=== PATIENT | male | born 1935 | race Caucasian/White ===

== ENCOUNTER 2016-12-11 06:04 | Day surgery (SDC) | payer OTHER ==
[~2016-12-11 06:04] MED LIST: ACETAMINOPHEN650 MG PTUBE; CARDURA2 MG PTUBE; CEPHALEXIN250 MG/5 M PTUBE; CEPHALEXIN500 MG PO; DOCUSATE SODIU250 MG PO; FLOMAX0.4 MG PO; IPRATROPIUM BROMIDE/ IN; LEVOTHYROXINE88 MCG PO; MILK OF MA400 MG/5 M PO; MULTI VITAMIN MENS; NIZORAL2 % TOP; NORCO1 TA1 PO; NORCO1 TA2 PO; PROMETHAZINE PO; SENOKOT8.6 MG PTUBE; SULFAMETHOXAZOLE PO; TGT ASPIRIN81 MG PO; TRAMADOL HCL50 MG PO; TRIMETHOPRIM PO; VITAMIN B COMPLE1 PO; VITAMIN D-31000 UNIT PO
[2016-12-11] MEDS ORDERED: HYCET1 ML PO (08:58)
--- NOTE | 2016-12-11 08:59 | Provider's Discharge Care Plan ---
Problem, Goal, Plan Problem List 1. S/P LAP LIH REPAIR (MADELEINE)
--- NOTE | 2016-12-11 08:59 | Provider's Discharge Care Plan ---
Problem, Goal, Plan Problem List 1. S/P LAP LIH REPAIR (MADELEINE)
--- NOTE | 2016-12-11 09:00 | Provider's Discharge Care Plan ---
Problem, Goal, Plan Problem List 1. S/P LAP LIH REPAIR (MADELEINE) Goals: Therapeutic intervention Instructions: Follow up as directed, Take meds as directed
--- NOTE | 2016-12-11 09:00 | Provider's Discharge Care Plan ---
Problem, Goal, Plan Problem List 1. S/P LAP LIH REPAIR (MADELEINE) Goals: Therapeutic intervention Instructions: Follow up as directed, Take meds as directed
--- NOTE | 2016-12-11 09:35 | OPERATIVE REPORT ---
DATE OF SURGERY: 12/11/2016 SURGEON: Leana Sofia III, MD TRAY CASTING MACHINE OPERATOR: None. PREOPERATIVE DIAGNOSIS: 1. Left inguinal hernia POSTOPERATIVE DIAGNOSIS: 1. Left direct inguinal hernia PROCEDURE PERFORMED: 1. Laparoscopic repair of left direct inguinal hernia with 11 x 8 cm Covidien ProGrip mesh (MADELEINE repair). ANESTHESIA: General endotracheal. INDICATIONS: An 81-year-old male with symptomatic left inguinal hernia and scheduled for repair. SURGICAL FINDINGS: Left direct inguinal hernia. SURGICAL TECHNIQUE: The patient was brought to the operating room and placed in the dorsal supine position, where he underwent general endotracheal anesthesia by the anesthesiology department. After proper anesthesia had taken effect, the patient 's abdomen and groin were prepped using Betadine and draped in a sterile fashion. An infraumbilical incision made, carried down through skin and subcutaneous tissue. A Veress needle was inserted through this site into the abdominal cavity and after ascertaining its appropriate position with suction irrigation, pneumoperitoneum obtained using CO2 insufflation to approximately 14-15 mmHg pressure. Once this pressure was reached, the Veress needle was removed and replaced with a 10 mm trocar. The trocar removed leaving the sleeve behind, through which a laparoscopic video camera was introduced into the abdominal cavity. Under direct visualization, a separate 5 mm trocar was placed in the right lower quadrant, a separate 10 mm trocar was placed in the left lower quadrant. Each entered the abdominal cavity under direct visualization. The trocars were removed, leaving the sleeves behind, through which laparoscopic instrumentation was introduced in the abdominal cavity. The peritoneum overlying the hernia was incised using electrocautery quyen. This incision was carried out medially to the lateral umbilical ligament and out laterally and inferior to the anterior superior iliac crest spine. The inferior peritoneal flap was created using a combination of blunt dissection and electrocautery. In the process, we were able to identify the pubic tubercle, Gerardo's ligament and reduce the direct hernia. We were able to skeletonize the cord in the process. Once this was achieved, we were able to place a piece the Covidien mesh , which had been cut in an ovoid fashion measuring approximately 11 x 8 cm in size in the preperitoneal space and placing it into such a position and orienting it to prevent shifting. The inferior peritoneal flap was raised to the upper portion of the peritoneal flap and secured using 3-0 V-Loc Covidien suture, thus reperitonealizing the mesh. Once the mesh was reperitonealized, approximately 30 mL of 0.5% Marcaine with epinephrine were placed in the preperitoneal space for postoperative analgesia. The pneumoperitoneum released and all trocars were removed from the abdominal cavity. All trocar sites approximated using 4-0 subdermal Polysorb and Steri-Strips. A sterile pressure occlusive dressing was placed over each site. The patient tolerated the procedure well, was extubated and transferred to the recovery room in stable condition. There were no intraoperative or anesthetic complications.
== END 2016-12-11 13:50 | disposition home or self-care (01) ==
LOC: OR SRH 06:04 → SCU SRH 06:36
PROVIDERS: Specialist
PROC: 0YU64JZ Supplement Left Inguinal Region with Synthetic Substitute, Percutaneous Endoscopic Approach (ICD-10-PCS; principal; 2016-12-11 07:30)
DX: K40.91 Unilateral inguinal hernia, without obstruction or gangrene, recurrent (principal)
CPT/HCPCS: 29240; 50002; 60001; 70002; 80102; 80212; 80248; 82669; 83432; 83587; 83710; 83711; 83919; 83982; 84038; 84322; 90074; 90100; 95059

== ENCOUNTER 2016-12-16 09:50 | Inpatient (IN) | payer OTHER ==
[~2016-12-16] VITALS: Ht 172.7 cm; Wt 71.6 kg
[~2016-12-16 09:50] MED LIST changes: +HYCET1 ML PO
--- NOTE | 2016-12-16 10:51 | DIAGNOSTIC IMAGING REPORT ---
PROCEDURE: XR CHEST 1 VIEW INDICATION: FEVER, initial encounter TECHNIQUE: Portable AP view 10:28 a.m. COMPARISON: Chest x-ray 09/18/2016 FINDINGS: Progression of right basilar consolidation with stable moderate right pleural effusion. Mild cardiomegaly with new pulmonary vascular congestion and left basilar alveolar opacities. Bony thorax is unchanged. IMPRESSION: 1. CHF with left basilar pulmonary edema versus pneumonia. 2. Progression of right basilar consolidation suggestive of pneumonia with stable right pleural effusion
--- NOTE | 2016-12-16 12:05 | DIAGNOSTIC IMAGING REPORT ---
PROCEDURE: CT HEAD WITHOUT CONTRAST INDICATION: TRAUMA/INJURY TECHNIQUE: Axial CT images were acquired through the head. Coronal and sagittal reformations were created. COMPARISON: Brain MRI 09/20/2012 FINDINGS: Mild cerebral cortical atrophy. Minimal hypodensity in the periventricular and subcortical white matter. Prominent ventricles No intracranial hemorrhage or extraaxial fluid collections. Ventricles are normal in size, shape and position. There is no mass, mass effect or midline shift. The browne-white matter differentiation is normal. There is no edema. The calvarium is intact. The paranasal sinuses and mastoid air cells are normally aerated. The extracranial soft tissues and orbits are normal. IMPRESSION: 1. No CT evidence of acute intracranial process. 2. Age related involutional and white matter changes. 3. Findings discussed with emergency department at noon All CT scans at this facility use dose modulation, iterative reconstruction, and/or weight-based dosing when appropriate to reduce radiation dose to as low as reasonably achievable.
--- NOTE | 2016-12-16 12:11 | DIAGNOSTIC IMAGING REPORT ---
PROCEDURE: XR SHOULDER 2 OR MORE VW-RIGHT INDICATION: TRAUMA/INJURY TECHNIQUE: Three views. COMPARISON: None. FINDINGS: Calcific tendonitis. No fracture or dislocation. IMPRESSION: 1. Calcific tendonitis
--- NOTE | 2016-12-16 12:26 | ED ORDER SUMMARY ---
..... Patient: ALEIDA LUCAS OrderSheet [facility] VisitID: [id number] [address] [place] [address] 81y, M Registration Date/Time: 12/16/2016 ORDER SHEET Weight: 67.1 kg (stated) Allergies: No Known Drug Allergy GENERAL ORDERS: Chest 1V Urgent (10:12/16/2016 Elizabeth RAHMAN) (Ack 10:26 LMuller) (10:26 LMuller) Director Of Restaurant Operations (Continuous) (10:12/16/2016 Elizabeth RAHMAN) (10:19 MWinterer R.N.) Blood Culture (No) (N/A) Urgent (10:12/16/2016 Elizabeth RAHMAN) (Ack 10:26 LMuller) (10:55 MWinterer R.N.) CBC w Diff Urgent (10:12/16/2016 Elizabeth RAHMAN) (Ack 10:26 LMuller) (10:55 MWinterer R.N.) CMP Urgent (10:12/16/2016 Elizabeth RAHMAN) (Ack 10:26 LMuller) (10:55 MWinterer R.N.) UA-Culture if indicated Urgent (10:12/16/2016 Elizabeth RAHMAN) (Ack 10:26 LMuller) (Cancelled: Other12:38 MWinterer R.N.) Lactate, Serum Urgent (10:12/16/2016 Eilzabeth RAHMAN) (Ack 10:26 LMuller) (10:55 MWinterer R.N.) Oxygen (2 L/min) (NC) (10:12/16/2016 Elizabeth RAHMAN) (10:19 MWinterer R.N.) Pulse oximeter (10:12/16/2016 Elizabeth RAHMAN) (10:19 MWinterer R.N.) EKG - ER Stat (10:12/16/2016 Elizabeth RAHMAN) (Ack 10:20 MWinterer R.N.) (10:41 LMuller) CT Head wo Cont Urgent (11:12/16/2016 Elizabeth RAMHAN) (Ack 11:34 LMuller) (12:17 MWinterer R.N.) Shoulder 2V or more Right Urgent (11:27 12/16/2016 Elizabeth RAHMAN) (Ack 11:34 LMuller) (12:17 MWinterer R.N.) MEDICATION ORDERS: Acetaminophen PO 1,000 mg (NOW) (10:17 12/16/2016 Elizabeth RAHMAN) (Ack 10:36 MWinterer R.N.) (Cancelled: NPO11:05 KWilliams R.N.) - (Tylenol IV 1000mg over 15 minutes) (11:06 12/16/2016 KWilliams R.N. verbal order read back to Elizabeth RAHMAN) (Ack 11:16 MWinterer R.N.) (Cancelled: Other12:06 MWinterer R.N.) Tylenol PO 975 mg (NOW) (12:18 12/16/2016 MWinterer R.N. verbal order read back to Elizabeth RAHMAN) (12:19 MWinterer R.N.) IV FLUIDS: IV NS : initial bolus 500 mL (1000 mL/hr), then 150 mL/hr (NOW) (10:16 12/16/2016 Elizabeth RAHMAN) (Ack 10:36 MWinterer R.N.) (10:57 MWinterer R.N.) Levaquin IV 750 mg/150 mL (NOW) (11:23 12/16/2016 Elizabeth RAHMAN) (Ack 11:38 MWinterer R.N.) (Cancelled: Change in patient iobtoxkiy11:32 Elizabeth RAHMAN) Levofloxacin IV 500 mg/100mL (NOW) (14:33 12/16/2016 Elizabeth RAHMAN) (Ack 14:36 MWinterer R.N.) (18:16 MWinterer R.N.) IV NS : initial bolus 250 mL (1000 mL/hr), then 100 mL/hr (NOW) (14:33 12/16/2016 Elizabeth RAHMAN) (Ack 14:36 MWinterer R.N.) (18:21 MWinterer R.N.) ORDER SHEET NOTES: [Electronically signed by Marie Powell R.N. (18:24 12/16/2016)] [Electronically signed by Jelena Nash MD (09:35 12/17/2016)] [Electronically locked/signed by Marie Powell R.N. (18:24 12/16/2016)Garima
--- NOTE | 2016-12-16 12:26 | ED NURSING NOTES ---
Clinical Report - Nurses [place] [address] [place] [address] 12/16/2016 9:51 Patient: ALEIDA LUCAS TRIAGE Acuity: LEVEL 3. Chief Complaint: WEAKNESS (pain from surgery). Alert. No acute distress. SEPSIS SCREEN: Sepsis Screen. Negative (no infection suspected/documented). CARLYLE COMA SCORE: [place] Coma Scale: 15- eyes open spontaneously (4); best verbal response- oriented x 4 (5); best motor response- obeys commands (6). --10:04 Marie Powell R.N. 09:51 12/16/16. BP: 114/73. HR: 106. RR: 20. O2 saturation: 95% on nasal cannula at 4 liters/minute. Temp: 98.7 F (oral). Pain level now: 01/23. --10:04 Marie Powell R.N. Weight: 67.1 kg stated. Height/Length: 70 inches Per Patient. BMI: 21.2. --10:02 Marie Powell R.N. Medications Levothyroxine Sodium Oral (Tablet 75 mcg) 1 tablet, daily. --14:56 Marie Powell R.N. ASA Oral 81mg, daily. --14:56 Marie Powell R.N. Doxazosin Mesylate Oral (Tablet 1 mg). --14:57 Marie Powell R.N. Vitamin D3 Oral (Tablet 1000 unit). --14:58 Marie Powell R.N. Vitamin B Complex Oral. --14:59 Marie Powell R.N. Milk of Magnesia Oral, as needed. --15:05 Marie Powell R.N. TraMADol HCl Oral 50 mg, as needed. --15:06 Marie Powell R.N. Promethazine HCl Oral. --15:07 Marie Powell R.N. Hydrocodone-Acetaminophen Oral. --15:09 Marie Powell R.N. Allergies No Known Drug Allergy. --10:01 Marie Powell R.N. Medication/allergy information source: the patient and patient's senior living record. --10:04 Marie Powell R.N. History Arrived by EMS. Historian: daughter and patient. Accompanied by daughter. Primary physician (Racheal). This started today. PAST MEDICAL HX: Has not received seasonal influenza immunization. SOCIAL HX: Former smoker. No alcohol use or drug use. SKIN INTEGRITY ASSESSMENT: Skin integrity risk assessment was performed. Risk factors identified include restricted mobility. NUTRITIONAL RISK ASSESSMENT: The nutritional risk assessment revealed no deficiencies. FALL RISK ASSESSMENT: Fall risk assessment completed. Risk factors identified include patient age greater than 65 years and impairment of mobility, sight and hearing. Fall interventions initiated. Patient placed on stretcher. Side rails up x2. Brakes on Bed in low position. Call light in reach of patient. 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 LEARNING NEEDS ASSESSMENT: A learning needs assessment was performed. Factors affecting the patient's ability to learn include physical limitations. --10:04 Marie Powell R.N. PROBLEMS: Cellulitis. Esophageal cancer. Cataracts. Neck Pain. Vomiting. GERD. Dementia. Tendonitis. Tetanus Status. Hypotension. Hypovolemia. Pneumonia. Colon polyps . Hiatal Hernia. Insomnia . Epistaxis. Hypertension. Immunizations. Tongue carcinoma. Thyroid Disease. --10:00 Marie Powell R.N. ADDITIONAL SURGERIES: Cochlear implant. Hammer toe. Percutaneous endoscopic gastrostomy. Skin ca. --10:01 Marie Powell R.N. Assessment GENERAL / NEURO / PSYCH: Alert. Oriented X 4. Appears in no acute distress. Patient appears calm and cooperative. RESPIRATORY: Respirations not labored. CVS: Capillary refill less than 2 seconds. SKIN: Mucous membranes are pink. Skin is warm and dry. --10:04 Marie Powell R.N. Interventions ID band on patient. To treatment room. --10:04 Marie Powell R.N. PHYSICAL ASSESSMENT 10:05 12/16/16. To room via stretcher. GENERAL / NEURO / PSYCH: Alert. Appears in no acute distress. HEENT: No facial asymmetry noted. Mucous membranes are pink. RESPIRATORY: Respirations not labored. CVS: Capillary refill less than 2 seconds. GI / : Abdomen soft. SKIN: Skin is warm and dry. --10:05 Marie Powell R.N. NURSING PROGRESS NOTES 10:12/16/16. Patient gowned. Two patient identifiers checked. Call light placed in reach. Side rails up x 2. Bed placed in lowest position. Brakes of bed on. Patient ready for evaluation- chart flagged and ED physician notified. --10:05 Marie Powell R.N. EKG time: (1035). EKG was performed by a tech and shown to the ED physician. --10:42 Mey Donis 10:56 12/16/2016 Site #1 started via IV in the right forearm with an 20g angiocath, with aseptic technique and good blood return; one attempt. Blood drawn: rainbow set. Labeled in the presence of the patient and sent to the lab. --10:56 Marie Powell R.N. 10:56 12/16/2016 Started bag #1 1000 mL IV Fluids IV NS (Saline); at 999 mL/hr over 30 minute(s) via site #1 via IV pump. Allergies verified and confirmed 5 rights. IV patency established. IV site checked: no pain, redness, or swelling. IV flushed thoroughly pre- and post-medication administration. --10:57 Marie Powell R.N. 11:24 12/16/16. BP: 107/68. HR: 101. RR: 20. O2 saturation: 95% on nasal cannula at 4 liters/minute. Temp: 98.8 F (oral). --11:25 Marie Powell R.N. 11:26 12/16/2016 IV Fluids IV NS via IV site #1 Rate Changed: bag #1 decreased to 150 mL/hr via IV pump. IV patency established. IV site checked: no pain, redness, or swelling. IV flushed thoroughly. Confirmed 5 Rights. --11:26 Winterer, Marie, R.N. <<STRICKEN ENTRY-- 12:17 12/16/2016 Started 750 mg of Levaquin (Levofloxacin) IVPB in bag #1 150 mL; at 100 mL/hr over 90 minute(s) via site #1 via IV pump. Allergies verified and confirmed 5 rights. IV patency established. IV site checked: no pain, redness, or swelling. IV flushed thoroughly pre- and post-medication administration. --12:17 Marie Powell R.N. --END STRIKE>> Correction. --18:16 Marie Powell R.N. 12:19 12/16/2016 Tylenol (Acetaminophen) PO 975 mg given. Allergies verified and confirmed 5 rights. (tylenol liquid given per feeding tube.). --12:19 Marie Powell R.N. 12:53 12/16/16. BP: 80/58. HR: 100. RR: 22. O2 saturation: 96% on nasal cannula at 3 liters/minute. --12:54 Marie Powell R.N. <<STRICKEN ENTRY-- 12:55 12/16/2016 Levaquin IVPB via IV site #1 Rate Changed: bag #1 decreased to 50 mL/hr via IV pump. IV patency established. IV site checked: no pain, redness, or swelling. IV flushed thoroughly. Confirmed 5 Rights (rate slowed due to BP drop). --12:55 Marie Powell R.N. --END STRIKE>> Correction. --18:16 Marie Powell R.N. 12:58 12/16/16. BP: 95/65. HR: 97. RR: 20. O2 saturation: 97% on nasal cannula at 3 liters/minute. --12:58 Marie Powell R.N. <<STRICKEN ENTRY-- 13:12/16/2016 Started bag #2 1000 mL IV Fluids IV NS (Saline); at 999 mL/hr over 30 minute(s) via site #1 via IV pump. Allergies verified and confirmed 5 rights. IV patency established. IV site checked: no pain, redness, or swelling. IV flushed thoroughly pre- and post-medication administration. --13:26 Marie Powell R.N. --END STRIKE>> Correction. --16:18 Marie Powell R.N. 13:12/16/2016 IV Fluids IV NS Discontinued: bag #1 infused. Total amount infused: 1000 mL. IV patency established. IV site checked: no pain, redness, or swelling. IV flushed thoroughly. --13:26 Marie Powell R.N. <<STRICKEN ENTRY-- 13:26 12/16/2016 IV Fluids IV NS via IV site #1 Rate Changed: bag #2 decreased to 150 mL/hr via IV pump. IV patency established. IV site checked: no pain, redness, or swelling. IV flushed thoroughly. Confirmed 5 Rights. --13:26 Marie Powell R.N. --END STRIKE>> Correction. --16:18 Marie Powell R.N. 13:27 12/16/2016 Site #2 started via IV in the left antecubital space with an 18g angiocath, with aseptic technique and good blood return; one attempt. Saline lock flushed with 10 mL saline. --13:27 Marie Powell R.N. 13:29 12/16/16. ( Dr Sanchez at bedside.). --13:29 Marie Powell R.N. 13:45 12/16/16. BP: 86/55. HR: 94. RR: 22. O2 saturation: 93% on nasal cannula at 2 liters/minute. Temp: 98.1 F (oral). --13:46 Marie Powell R.N. <<STRICKEN ENTRY-- 13:47 12/16/2016 Levaquin IVPB Discontinued: bag #1 discontinued. Total amount infused: 112 mL. --13:47 Marie Powell R.N. --END STRIKE>> Correction. --18:16 Marie Powell R.N. 14:12/16/16. BP: 88/59. HR: 94. RR: 20. O2 saturation: 91%. --14:04 Marie Powell R.N. 14:15 12/16/16. BP: 92/58. HR: 90. RR: 20. O2 saturation: 95% on nasal cannula at 3 liters/minute. --14:15 Marie Powell R.N. 14:31 12/16/16. BP: 92/60. HR: 90. RR: 24. O2 saturation: 95% on nasal cannula at 3 liters/minute. --14:31 Marie Powell R.N. 12:17 12/16/2016 Started 750 mg of Levofloxacin IVPB in bag #1 150 mL; at 100 mL/hr over 90 minute(s) via site #1 via IV pump. Allergies verified and confirmed 5 rights. IV patency established. IV site checked: no pain, redness, or swelling. IV flushed thoroughly pre- and post-medication administration. --18:16 Marie Powell R.N. 12:55 12/16/2016 Levofloxacin IVPB via IV site #1 Rate Changed: bag #1 decreased to 50 mL/hr via IV pump. IV patency established. IV site checked: no pain, redness, or swelling. IV flushed thoroughly. Confirmed 5 Rights (rate changed due to pt's BP drop). --18:17 Marie Powell R.N. 13:00 12/16/2016 Started bag #2 1000 mL IV Fluids IV NS (Saline); at 999 mL/hr over 15 minute(s) via site #1 via IV pump. Allergies verified and confirmed 5 rights. IV patency established. IV site checked: no pain, redness, or swelling. IV flushed thoroughly pre- and post-medication administration. --18:21 Marie Powell R.N. 13:47 12/16/2016 Levofloxacin IVPB Discontinued: bag #1 STOPPED. Total amount infused: 112 mL. IV patency established. IV site checked: no pain, redness, or swelling. IV flushed thoroughly. (bag stopped due to BP. Pt given 500 mg instead of 750 mg..). --18:19 Marie Powell R.N. 15:15 12/16/2016 Site #[address] upon admission; patent, no pain and no signs of infection or infiltration. Flushed with 10 mL saline; flushes easily. --18:22 Marie Powell R.N. 15:15 12/16/2016 Site #[address] upon admission; patent, no pain and no signs of infection or infiltration. Flushed with 10 mL saline; flushes easily. --18:22 Marie Powell R.N. 15:15 12/16/2016 IV Fluids IV NS Discontinued: bag #2 discontinued upon admission. Total amount infused: 500 mL. IV patency established. IV site checked: no pain, redness, or swelling. IV flushed thoroughly. --18:22 Marie Powell R.N. <<[facility] ENTRY-- 16:22 12/16/2016 Started bag #2 1000 mL IV Fluids IV NS (Saline); at 999 mL/hr over 15 minute(s) via site #1 via IV pump. Allergies verified and confirmed 5 rights. IV patency established. IV site checked: no pain, redness, or swelling. IV flushed thoroughly pre- and post-medication administration. --16:22 Marie Powell R.N. --END STRIKE>> Correction. --18:20 Marie Powell R.N. DIS[facility]ITION / DISCHARGE [facility] 14:05 12/16/16. BP: 155/85. HR: 99. RR: 15. O2 saturation: 99% on room air. Temp: 98.6 F. Pain level now: 0/10. --14:06 aMrie Powell R.N. --END STRIKE>> Charted on wrong patient. --14:53 Marie Powell R.N. Departure time: 15:Dec 16 2016. Condition at departure: improved and stable. Admitted to Acute Care. Transported via stretcher by [employer] Report was given to a nurse via a phone call. Report included patient's care, treatment, medications, reviewed medication reconcilliation, and condition (including any recent changes or anticipated changes). All questions were answered. Report was acknowledged and care was transferred. (NADIA Parker). Patient's personal items include: upper denture and lower denture, pt's daughter took pt's clothes home. He did not have glasses or a hearing aid, wallet or cell phone. --15:13 Marie Powell R.N. 14:53 12/16/16. BP: 94/61. HR: 93. RR: 20. O2 saturation: 95% on nasal cannula at 3 liters/minute. Temp: 98.1 F (oral). Pain level now: 0/10. --15:13 Marie Powell R.N. Locked/Released at 12/16/2016 18:24 by Marie Powell R.N.
--- NOTE | 2016-12-16 12:26 | ED ORDER SUMMARY ---
..... Patient: ALEIDA LUCAS OrderSheet [facility] VisitID: [id number] [address] [place] [address] 81y, M Registration Date/Time: 12/16/2016 ORDER SHEET Weight: 67.1 kg (stated) Allergies: No Known Drug Allergy GENERAL ORDERS: Chest 1V Urgent (10:12/16/2016 Elizabeth RAHMAN) (Ack 10:26 LMuller) (10:26 LMuller) C T Tech (Continuous) (10:12/16/2016 Elizabeth RAHMAN) (10:19 MWinterer R.N.) Blood Culture (No) (N/A) Urgent (10:12/16/2016 Elizabeth RAHMAN) (Ack 10:26 LMuller) (10:55 MWinterer R.N.) CBC w Diff Urgent (10:12/16/2016 Elizabeth RAHMAN) (Ack 10:26 LMuller) (10:55 MWinterer R.N.) CMP Urgent (10:12/16/2016 Elizabeth RAHMAN) (Ack 10:26 LMuller) (10:55 MWinterer R.N.) UA-Culture if indicated Urgent (10:12/16/2016 Elizabeth RAHMAN) (Ack 10:26 LMuller) (Cancelled: Other12:38 MWinterer R.N.) Lactate, Serum Urgent (10:12/16/2016 Elizabeth RAHMAN) (Ack 10:26 LMuller) (10:55 MWinterer R.N.) Oxygen (2 L/min) (NC) (10:12/16/2016 Elizabeth RAHMAN) (10:19 MWinterer R.N.) Pulse oximeter (10:12/16/2016 Elizabeth RAHMAN) (10:19 MWinterer R.N.) EKG - ER Stat (10:12/16/2016 Elizabeth RAHMAN) (Ack 10:20 MWinterer R.N.) (10:41 LMuller) CT Head wo Cont Urgent (11:12/16/2016 Elizabeth RAHMAN) (Ack 11:34 LMuller) (12:17 MWinterer R.N.) Shoulder 2V or more Right Urgent (11:27 12/16/2016 Elizabeth RAHMAN) (Ack 11:34 LMuller) (12:17 MWinterer R.N.) MEDICATION ORDERS: Acetaminophen PO 1,000 mg (NOW) (10:17 12/16/2016 Elizabeth RAHMAN) (Ack 10:36 MWinterer R.N.) (Cancelled: NPO11:05 KWilliams R.N.) - (Tylenol IV 1000mg over 15 minutes) (11:06 12/16/2016 KWilliams R.N. verbal order read back to Elizabeth RAHMAN) (Ack 11:16 MWinterer R.N.) (Cancelled: Other12:06 MWinterer R.N.) Tylenol PO 975 mg (NOW) (12:18 12/16/2016 MWinterer R.N. verbal order read back to Elizabeth RAHMAN) (12:19 MWinterer R.N.) IV FLUIDS: IV NS : initial bolus 500 mL (1000 mL/hr), then 150 mL/hr (NOW) (10:16 12/16/2016 Elizabeth RAHMAN) (Ack 10:36 MWinterer R.N.) (10:57 MWinterer R.N.) Levaquin IV 750 mg/150 mL (NOW) (11:23 12/16/2016 Elizabeth RAHMAN) (Ack 11:38 MWinterer R.N.) (Cancelled: Change in patient aohctjcuu56:32 Elizabeth RAHMAN) Levofloxacin IV 500 mg/100mL (NOW) (14:33 12/16/2016 Elizabeth RAHMAN) (Ack 14:36 MWinterer R.N.) (18:16 MWinterer R.N.) IV NS : initial bolus 250 mL (1000 mL/hr), then 100 mL/hr (NOW) (14:33 12/16/2016 Elizabeth RAHMAN) (Ack 14:36 MWinterer R.N.) (18:21 MWinterer R.N.) ORDER SHEET NOTES: [Electronically signed by Marie Powell R.N. (18:24 12/16/2016)] [Electronically signed by Jelena Nash MD (09:35 12/17/2016)] [Electronically locked/signed by Marie Powell R.N. (18:24 12/16/2016)Garima
--- NOTE | 2016-12-16 12:26 | ED CLINICAL REPORT ---
Clinical Report - Physicians/Mid Levels [facility] [address] [place] [address] 12/16/2016 9:51 Patient: ALEIDA LUCAS Time Seen: 1038. Arrived- By ambulance. Historian- patient, EMS personnel and family. HISTORY OF PRESENT ILLNESS Chief Complaint: FEVER and "NOT FEELING WELL". This started last night and is still present. He has had measured fever of 102 F. No muscle aches, chest pain, dyspnea, diarrhea or altered mental status. No skin breakdown noted or rash or joint pain. He has had loss of appetite, fatigue, a cough and decreased oral intake. No decreased urine output. Additional history - The patient has a recent hospitalization. (Pt had an uncomplicated laparoscopic L inguinal hernia repair about 1 week ago.). No known contact with a sick individual. Has not recently been ill. He is not immunocompromised. No organ transplant. No history of cancer. No history of HIV illness. No drug use. No alcohol recently. Daughter states pt was shaking and febrile last night, and O2 sats were 79% on RA. Pt has a congested-sounding cough, which daugther states is baseline for him. Similar symptoms previously: None. Recent medical care: The patient was seen recently by a health care provider. ( Dr. Sofia did pt's surgery.). REVIEW OF SYSTEMS No anorexia, weight loss, palpitations, calf pain or sputum production. No nausea, constipation, black stools, difficulty with urination or flank pain. No vomiting, headache, sinus pain, sore throat or enlarged lymph nodes. No neck pain or back pain. All systems otherwise negative, except as recorded above. PAST HISTORY Diabetes mellitus. SOCIAL HISTORY Never smoker. No alcohol use or drug use. ADDITIONAL NOTES The nursing notes have been reviewed. PHYSICAL EXAM Vital Signs: 12/16/2016 09:51 BP: 114/73. HR: 106. RR: 20. O2 saturation: 95%. Temp: 98.7 F. Pain level now: 3/10. Have been reviewed. Appearance: Alert. No acute distress. Eyes: Pupils equal, round and reactive to light. Eyes normal inspection. ENT: Nose normal. Neck: Normal inspection. CVS: Normal heart rate and rhythm. Heart sounds normal. Pulses normal. Respiratory: No respiratory distress. Moderate rales in the left lung base posteriorly. Abdomen: Soft. Mild tenderness in the lower abdomen (associated with incisions and R groin (area of hernia repair); incisions are c/d/i, without evidence of infection.). Back: Normal inspection. Skin: Skin warm and dry. Normal skin color. No rash. Normal skin turgor. Extremities: Extremities exhibit normal ROM. Extremities nontender. Neuro: No motor deficit. No sensory deficit. (PT is alert, and answers questions appropriately.). LABS, X-RAYS, AND EKG Rhythm Strip #1: Time: (1042). Rate= 104. Sinus tachycardia. Regular rhythm. Narrow QRS complexes. No ectopy. Conduction normal. Normal ST segments and T waves. The study was interpreted by me. Chest X-ray: Medium-sized, patchy infiltrate in the right lower lobe and left lower lobe. Consistent with pneumonia. Normal heart size. Mediastinum normal. Great vessels normal. Soft tissues normal. No fracture. No bony lesion present. Views: AP (portable). Technique: good. The X-rays were independently viewed by me and interpreted contemporaneously by me. A comparison with prior films reveals that the findings have worsened. Laboratory Tests: CBC w Diff: (TAN: 12/16/2016 10:50) ( MsgRcvd 12/16/2016 11:03) Final results Test Result Flag Units (Reference) WHITE BLOOD COUNT 17.3 # H K/uL (4.5-11.5) RED BLOOD COUNT 4.02 L M/uL (4.50-5.90) HEMOGLOBIN 12.3 L gm/dL (13.5-17.5) HEMATOCRIT 36.7 L % (41.0-53.0) MEAN CELL VOLUME 91 fL (80-100) MEAN CORPUSCULAR HGB 31 pg (26-34) MEAN CORPUSCULAR HGB CONC 33 g/dL (31-37) RED CELL DISTRIBUTION WIDTH 15.2 H % (11.6-14.8) PLATELET COUNT 211 K/uL (150-400) NEUTROPHIL % 94.6 H % (50-75) LYMPH % 2.0 L % (25-40) MONO % 3.3 % (3-14) EOSINOPHIL % 0 % (0-4) BASOPHIL % 0.1 % (0-2) Lactate, Serum: (TAN: 12/16/2016 10:50) ( MsgRcvd 12/16/2016 11:28) Final results Test Result Flag Units (Reference) LACTIC ACID 1.5 mmol/L (0.4-2.0) CMP: (TAN: 12/16/2016 10:50) ( MsgRcvd 12/16/2016 11:17) Final results Test Result Flag Units (Reference) GLUCOSE 141 H mg/dL (70-110) BUN 36 H mg/dL (7-18) CREATININE 1.0 mg/dL (0.6-1.3) Estimated GFR >60 mL/min Estimated GFR- >60 mL/min Note: Persistent reduction over 3 months in eGFR<60 mL/min/1.73 m2 defines CKD. Patients with eGFR values>=60 mL/min/1.73 m2 may also have CKD if evidence ofpersistent proteinuria. Additional information may be foundat [email or web address]. SODIUM 138 mmol/L (136-145) POTASSIUM 4.6 mmol/L (3.5-5.1) CHLORIDE 100 mmol/L (98-107) CARBON DIOXIDE 32 mmol/L (21-32) CALCIUM 9.1 mg/dL (8.5-10.1) TOTAL PROTEIN 7.4 g/dL (6.4-8.2) ALBUMIN 2.3 L g/dL (3.3-5.0) BILIRUBIN, TOTAL 0.4 mg/dL (0.0-1.0) ALKALINE PHOSPHATASE 113 U/L (46-116) AST (SGOT) 26 U/L (15-37) ALT (SGPT) 16 U/L (12-78) . Pulse Oximetry: 12/16/2016 09:51 O2 saturation: 95%. (FIO2-2 liter/min nasal cannula). Interpretation: normal. PROGRESS AND PROCEDURES Course of Care: Pt was worked up for his sx, and found to have bilateral infiltrates. He was treated with IV Levaquin for this. Pt was given IV fluid, as I suspected some degree of dehydration, given his decreased oral intake. His blood pressure did drop while receiving Levaquin, and he was given small NS boluses for this. His lactate level was normal. I did feel pt should be admitted to the hospital. Dr. Sofia did come to the ED and examine the pt's surgical site, and felt this looked good. Discussed case with patient's primary care provider, (Daniel). Reviewed test results and need for additional work-up. Agreed upon treatment plan and decision to admit. Health care provider will see patient in ED. Patient counseled in person regarding the patient's stable condition, test results, diagnosis and need for follow-up. Concerns were addressed. Old medical records reviewed. Disposition: Admitted to Acute Care. Condition: stable and serious. CLINICAL IMPRESSION Bacterial pneumonia with hypoxemia. Vital signs recorded and reviewed; empiric antibiotics given in the ED. No respiratory failure or sepsis. (Electronically signed by Jelena Nash MD 12/17/2016 9:35)
--- NOTE | 2016-12-16 14:59 | HISTORY AND PHYSICAL ---
ADMITTED: 12/16/2016 CHIEF COMPLAINT: Weakness. HISTORY OF PRESENT ILLNESS: An 81-year-old male brought to [facility] because of increasing weakness over the last 2 days. He had a hernia repair 2 weeks ago laparoscopically, without complications. He was discharged home; however, it was noted at home that he feels increasingly weak. He admits to some occasional cough, but not particularly severe. He denies shortness of breath, chest pain, palpitations, nausea, vomiting, diarrhea, or constipation. He denies fevers and chills. MEDICAL/SURGICAL HISTORY: Remarkable for hernia recently repaired. Cough, and a history of recurrent aspiration pneumonias, also resolved with placement of a gastric tube and cessation of oral feeding. The patient denies any recent oral intake. History of pleural effusion. Chronic obstructive pulmonary disease with chronic hypoxia. Depression. History of syncope. Lumbar disk disease and degenerative joint disease. Chronic ------- pain. Carotid bruit. Heart murmur. Hypothyroidism. Deafness. History of colon polyps. 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 Hyperlipidemia. Hiatal hernia. GERD. Past surgical history: T&A, gastrostomy in 2004, right knee arthroscopy, laparoscopic hernia repair. MEDICATIONS: (All meds are taken per gastric tube): 1. Milk of magnesia 15 mL p.o. at bedtime p.r.n. constipation. 2. B complex 1 tablet daily. 3. Ensure 240 mL per G-tube 4 times daily when Resource 2.0 not available. Otherwise, the patient takes Resource 2.0 at 240 mL per G-tube 4 times daily. 4. Oxygen 2 liters per nasal prongs continuous. 5. Doxazosin 1 mg per feeding tube at bedtime. 6. Tramadol 50 mg 1 p.o. b.i.d. p.r.n. pain. 7. Levothyroxine 75 mcg p.o. daily. 8. Multivitamin with fluoride 1 p.o. daily. 9. Vitamin D 2000 units daily. 10. Aspirin 81 mg daily. ALLERGIES: 1. NONE KNOWN. SOCIAL HISTORY: male, in 2008. 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 [employer]. Smoking: None. Alcohol use: None. Drug use: None. FAMILY HISTORY: Parents both at advanced age; mother is alive and well. Sister is alive with breast cancer. Son is alive and well. REVIEW OF SYSTEMS: General: Denies fever or chills. Admits to weakness. Neurologic: Denies seizure, headache or tremor. HEENT: Denies runny nose, sore throat, ear pain, or sinus pain. Respiratory: Admits to some cough, but not more than his chronic cough. Denies shortness of breath or wheezing, though he has chronic need for oxygen. Family reported O2 saturation 79% at home, which is lower than his usual. Cardiac: Denies chest pain, palpitations, but admits to history of heart murmur. Gastrointestinal: Some pain in the left groin post hernia surgery. Denies other abdominal pain, nausea or vomiting. Denies constipation or diarrhea. Genitourinary: Denies dysuria, hematuria, or frequency. PHYSICAL EXAMINATION: VITAL SIGNS: Blood pressure 114/73, heart rate 106, respirations 20, SaO2 95% on nasal cannula at 4 liters per minute, temperature 98.7. HEENT: Clear, except for slightly dry oropharynx. NECK: Supple, without adenopathy or thyromegaly. CHEST: Positive rhonchi bilaterally, without wheezing. Good air movement is heard. Chest appears to be hyperexpanded. HEART: Regular rate and rhythm with distant heart sounds. ABDOMEN: Positive bowel sounds, soft, nontender, with gastrostomy tube in place and healing laparoscopy incisions with tape on them. No surrounding inflammation, induration or tenderness. Abdomen is not distended, and there is no guarding, rebound, or masses. BACK: Straight without CVA tenderness. EXTREMITIES: Without cyanosis, clubbing, or edema. GENITOURINARY: Exam was deferred. NEUROLOGICAL: Intact. The patient is alert and oriented x3. Cranial nerves II through XII intact and symmetric. Motor and sensory grossly normal. LAB/IMAGING: WBC 17.3, hemoglobin 12.3, hematocrit 36.7, platelets 211. Sodium 138, potassium 4.6, chloride 100, bicarbonate 32, BUN 36, creatinine 1.0. Glucose 141. Lactic acid 1.5, calcium 9.1, total bilirubin 0.4, AST 26, ALT 16, alkaline phosphatase 113, total protein 7.4, albumin 2.3. Urinalysis is pending. Chest x-ray is obtained, showing CHF with left bibasilar pulmonary edema versus pneumonia and progression of right basilar consolidation, suggestive of pneumonia with stable right pleural effusion. CT of the head shows no acute intracranial process; age-related changes are noted. Right shoulder x-ray reveals calcific tendinitis. No fracture or dislocation. EKG is obtained showing sinus tachycardia with PACs; no acute changes are noted. IMPRESSION/PLAN: 1. Pneumonia, bibasilar 2. Congestive heart failure by chest x-ray, though I doubt this clinically. We will obtain a BNP to assess further and monitor. Cautious IV hydration will be undertaken to maintain blood pressure (blood pressure on arrival was as noted; however, after receiving IV Levaquin, blood pressure dropped to approximately 90 systolic, possibly secondary to Levaquin, but no doubt contributed to by some dehydration) 3. 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 History of thyroid disease 5. History of hypertension 6. History of dementia, though the patient appears to be alert and oriented at this time Plan is admit to [facility] as noted above for IV antibiotics, gentle IV hydration, nebulized treatments, oxygen supplementation and monitoring. Fluid status will be monitored, as chest x-ray shows possible CHF, though clinically the patient appears dry.
[2016-12-16 15:31] VITALS: BP 117/66
--- NOTE | 2016-12-16 16:47 | NUR ---
NUTRITION NOTE: Pt admitted this afternoon with dx/o weakness, bilate PNA, recent s/p inguinal hernia repair 12/11. Pt has PEG tube x almost 1 year now and has hx/o esophageal ca. This pt known to me from previous admissions. Checked pt enteral nutrition orders that he is on at his currently living facility. Pt takes Resource 2.0 Qid, at 240 mls boluses at a time. Thir provides ~1920 kcals per day. Orders and admission data in progress at this time. Communicated with nsg and varified resouce 2.0 avail and accessable for nursing. RD to follow up with complete assessment.
[2016-12-16 18:25] VITALS: BP 110/63
--- NOTE | 2016-12-16 22:47 | NUR ---
Patient was admitted around 1500, transfered from ER bed to floor bed. Hes sleeping now, Alert and oriented, in no pain, assessed Peg tube, was given his evening feedings of house formula as per orders. Flushed with 30 cc water before and after feedings as per orders. patients is in no distress, and currently sleeping.
[2016-12-16 23:00] VITALS: BP 121/73
--- NOTE | 2016-12-17 02:16 | NUR ---
Pt. is resting in bed at this time. Denies pain. Coarse lung sounds throughout, denies SOB. 4 L NC. Pt. voided 150 cc urine, bladder scanned pt. approx. one hour later and got approx. 315 mLs. Pt. denies the need to void/denies pressure in bladder area. Will encourage pt. to void again soon. Pt. is alert during care, forgetful. PEG tube placement checked, skin around PEG tube intact. Call light within reach. TM.
[2016-12-17 03:30] VITALS: BP 116/77
--- NOTE | 2016-12-17 07:06 | Progress Note ---
Subjective General 81yo male admitted with pneumonia. Pt has hx throat cancer and resultant dysphagia/aspiration resulting in recurrent pneumonias and g-tube placement. Pt has done better since staying NPO but now is admitted with pneumonia. Admitted and placed on levaquin and feels improved. Denies cp/palp/sob(on O2), nausea or vomiting. Physical Exam Vital Signs / I&Os Vital Signs Date Time Temp Pulse Resp B/P Pulse O2 O2 Flow FiO2 Ox Delivery Rate 12/17 0330 98.2 98 16 116/77 96 Nasal 4.0 Cannula 12/17 0302 4.0 12/17 0132 4.0 12/16 2300 98.2 89 17 121/73 99 Nasal 4.0 Cannula 12/16 2125 4.0 12/16 1825 97.9 101 18 110/63 100 Nasal 4.0 Cannula 12/16 1532 5.0 12/16 1531 98.4 100 18 117/66 92 Nasal 5.0 Cannula I&O 12/16 0800 12/16 1600 12/17 0000 Intake Total 0 Output Total 0 Balance 0 General Appearance Alert, Oriented X3, Cooperative, No acute distress Lungs Diffuse rhonchi. Not wheezing. Percussion normal. Cardiovascular Regular rate and rhythm Abdomen Normal bowel sounds, Soft, No tenderness, G-tube in place. Extremities No cyanosis, No clubbing, No edema Skin No Rashes LAB Results Laboratory Tests 12/16 12/16 12/16 12/17 1017 1050 1050 0530 Chemistry Plasma Sodium (136 - 145 mmol/L) 138 145 Plasma Potassium (3.5 - 5.1 mmol/L) 4.6 4.1 Plasma Chloride (98 - 107 mmol/L) 100 106 CO2 (Enzymatic) (21 - 32 mmol/L) 32 33 BUN (7 - 18 mg/dL) 36 25 Creatinine (0.6 - 1.3 mg/dL) 1.0 0.7 Est GFR ( Amer) (mL/min) >60 >60 Est GFR (Non-Af Amer) (mL/min) >60 >60 Glucose (70 - 110 mg/dL) 141 110 Lactic Acid (0.4 - 2.0 mmol/L) 1.5 Plasma Calcium (8.5 - 10.1 mg/dL) 9.1 7.7 Plasma Magnesium (1.8 - 2.4 mg/dL) 1.6 Total Bilirubin (0.0 - 1.0 mg/dL) 0.4 0.3 AST (15 - 37 U/L) 26 21 ALT (12 - 78 U/L) 16 15 Alkaline Phosphatase (46 - 116 U/L) 113 99 Total Protein (6.4 - 8.2 g/dL) 7.4 5.4 Albumin (3.3 - 5.0 g/dL) 2.3 1.9 Hematology WBC (4.5 - 11.5 K/uL) 17.3 13.2 RBC (4.50 - 5.90 M/uL) 4.02 3.57 Hgb (13.5 - 17.5 gm/dL) 12.3 10.9 Hct (41.0 - 53.0 %) 36.7 32.8 MCV (80 - 100 fL) 91 92 MCH (26 - 34 pg) 31 31 RDW (11.6 - 14.8 %) 15.2 15.1 Neut % (Auto) (50 - 75 %) 94.6 90.4 Lymph % (Auto) (25 - 40 %) 2.0 3.8 [place] % (Auto) (3 - 14 %) 3.3 5.4 Eos % (Auto) (0 - 4 %) 0 0 Baso % (Auto) (0 - 2 %) 0.1 0.4 Plt Count, EDTA (150 - 400 K/uL) 211 202 PUBS MCHC (31 - 37 g/dL) 33 33 Urines Urine Color Cancelled Urine Appearance Cancelled Urine pH Cancelled Ur Specific [place] Cancelled Urine Protein Cancelled Urine Ketones Cancelled Urine Blood Cancelled Urine Nitrite Cancelled Urine Bilirubin Cancelled Urine Urobilinogen Cancelled Ur Leukocyte Esterase Cancelled Urine RBC Cancelled Urine WBC Cancelled Ur Epithelial Cells Cancelled Urine Bacteria Cancelled Urine Glucose Cancelled Microbiology Date/Time Procedure - Status Source Growth 12/16 1105 Blood Culture - RECD BLOOD 12/16 1050 Blood Culture - RECD BLOOD Assessment and Plan Problem List 1. Pneumonia Plan Continue antibiotics and nebulized rx and O2. 2. COPD exacerbation Plan Improved with oxygen and oxygen. 3. Hypomagnesemia Plan Supplement ordered.
[2016-12-17 07:30] VITALS: BP 118/75
--- NOTE | 2016-12-17 09:35 | ED MED RECONCILIATION SUMMARY ---
Patient: ALEIDA LUCAS Medication Reconciliation Report [facility] VisitID: [id number] [address] [place] [address] 81y, M Registration Date/Time: 12/16/2016 Weight: 67.1 kg Height/Length: 70 in. BMI: 21.2 ALLERGIES: No Known Drug Allergy The patient's Home Medications are listed below: THE FOLLOWING MEDICATIONS NEED TO BE RECONCILED: ASA Oral 81mg, daily Doxazosin Mesylate Oral (1 mg) Hydrocodone-Acetaminophen Oral Levothyroxine Sodium Oral (75 mcg) 1 tablet, daily Milk of Magnesia Oral Promethazine HCl Oral TraMADol HCl Oral 50 mg Vitamin B Complex Oral Vitamin D3 Oral (1000 unit) The source(s) of the original Home Medication information: patient patient's [facility] record The following Medications were given to the patient in the Emergency Department: IV NS IV Fluids bolus 0, then 999 mL/hr, administered: 12/16/2016 10:56:00 AM Tylenol [PO] PO 975 mg, administered: 12/16/2016 12:19:00 PM Levofloxacin [IVPB] IVPB bolus 0, then 750 mg 100 mL/hr, administered: 12/16/2016 12:17:00 PM IV NS IV Fluids bolus 0, then 999 mL/hr, administered: 12/16/2016 1:00:00 PM The following Medications were prescribed to the patient: None.
--- NOTE | 2016-12-17 09:35 | ED MAR SUMMARY ---
..... Medication Administration Record [facility] [address] [place] [address] Patient: ALEIDA LUCAS Visit ID: [id number] 81y, M Weight: 67.1 kg Height/Length: 70 in BMI: 21.2 ALLERGIES: No Known Drug Allergy Start 10:56 12/16/2016 Marie Powell R.N., Stop 13:01 12/16/2016 Marie Powell R.N. Medication Administered: IV NS (SALINE), Dose: IV Fluids over 30 minute(s), Rate: 999 mL/hr, Dispensed: 1000 mL bag, Site: #1 right forearm. Medication Ordered: IV NS : initial bolus 500 mL (1000 mL/hr), then 150 mL/hr (NOW). Start 12:17 12/16/2016 Marie Powell R.N., Stop 13:47 12/16/2016 Marie Powell R.N. Medication Administered: LEVOFLOXACIN [IVPB], Dose: 750 mg IVPB over 90 minute(s), Rate: 100 mL/hr, Dispensed: 150 mL bag, Site: #1 right forearm. Medication Ordered: Levofloxacin IV 500 mg/100mL (NOW). Given 12:19 12/16/2016 Marie Powell R.N. Medication Administered: TYLENOL [PO] (ACETAMINOPHEN), Dose: 975 mg PO. Medication Ordered: Tylenol PO 975 mg (NOW). Start 13:00 12/16/2016 Marie Powell R.N., Stop 15:15 12/16/2016 Marie Powell R.N. Medication Administered: IV NS (SALINE), Dose: IV Fluids over 15 minute(s), Rate: 999 mL/hr, Dispensed: 1000 mL bag, Site: #1 right forearm. Medication Ordered: IV NS : initial bolus 250 mL (1000 mL/hr), then 100 mL/hr (NOW).
--- NOTE | 2016-12-17 09:35 | ED MAR SUMMARY ---
..... Medication Administration Record [facility] [address] [place] [address] Patient: ALEIDA LUCAS Visit ID: [id number] 81y, M Weight: 67.1 kg Height/Length: 70 in BMI: 21.2 ALLERGIES: No Known Drug Allergy Start 10:56 12/16/2016 Marie Powell R.N., Stop 13:01 12/16/2016 Marie Powell R.N. Medication Administered: IV NS (SALINE), Dose: IV Fluids over 30 minute(s), Rate: 999 mL/hr, Dispensed: 1000 mL bag, Site: #1 right forearm. Medication Ordered: IV NS : initial bolus 500 mL (1000 mL/hr), then 150 mL/hr (NOW). Start 12:17 12/16/2016 Marie Powell R.N., Stop 13:47 12/16/2016 Marie Powell R.N. Medication Administered: LEVOFLOXACIN [IVPB], Dose: 750 mg IVPB over 90 minute(s), Rate: 100 mL/hr, Dispensed: 150 mL bag, Site: #1 right forearm. Medication Ordered: Levofloxacin IV 500 mg/100mL (NOW). Given 12:19 12/16/2016 Marie Powell R.N. Medication Administered: TYLENOL [PO] (ACETAMINOPHEN), Dose: 975 mg PO. Medication Ordered: Tylenol PO 975 mg (NOW). Start 13:00 12/16/2016 Marie Powell R.N., Stop 15:15 12/16/2016 Marie Powell R.N. Medication Administered: IV NS (SALINE), Dose: IV Fluids over 15 minute(s), Rate: 999 mL/hr, Dispensed: 1000 mL bag, Site: #1 right forearm. Medication Ordered: IV NS : initial bolus 250 mL (1000 mL/hr), then 100 mL/hr (NOW).
--- NOTE | 2016-12-17 09:35 | ED DISCHARGE INSTRUCTIONS ---
Patient: ALEIDA LUCAS General Instructions [facility] VisitID: [id number] [address] [place] [address] 81y, M Registration Date/Time: 12/16/2016 Bacterial pneumonia with hypoxemia. Vital signs recorded and reviewed; empiric antibiotics given in the ED. No respiratory failure or sepsis. (Electronically signed by Jelena Nash MD 12/17/2016 9:35)
--- NOTE | 2016-12-17 09:35 | ED MED RECONCILIATION SUMMARY ---
Patient: ALEIDA LUCAS Medication Reconciliation Report [facility] VisitID: [id number] [address] [place] [address] 81y, M Registration Date/Time: 12/16/2016 Weight: 67.1 kg Height/Length: 70 in. BMI: 21.2 ALLERGIES: No Known Drug Allergy The patient's Home Medications are listed below: THE FOLLOWING MEDICATIONS NEED TO BE RECONCILED: ASA Oral 81mg, daily Doxazosin Mesylate Oral (1 mg) Hydrocodone-Acetaminophen Oral Levothyroxine Sodium Oral (75 mcg) 1 tablet, daily Milk of Magnesia Oral Promethazine HCl Oral TraMADol HCl Oral 50 mg Vitamin B Complex Oral Vitamin D3 Oral (1000 unit) The source(s) of the original Home Medication information: patient patient's correction record The following Medications were given to the patient in the Emergency Department: IV NS IV Fluids bolus 0, then 999 mL/hr, administered: 12/16/2016 10:56:00 AM Tylenol [PO] PO 975 mg, administered: 12/16/2016 12:19:00 PM Levofloxacin [IVPB] IVPB bolus 0, then 750 mg 100 mL/hr, administered: 12/16/2016 12:17:00 PM IV NS IV Fluids bolus 0, then 999 mL/hr, administered: 12/16/2016 1:00:00 PM The following Medications were prescribed to the patient: None.
--- NOTE | 2016-12-17 09:35 | ED DISCHARGE INSTRUCTIONS ---
Patient: ALEIDA LUCAS General Instructions [facility] VisitID: [id number] [address] [place] [address] 81y, M Registration Date/Time: 12/16/2016 Bacterial pneumonia with hypoxemia. Vital signs recorded and reviewed; empiric antibiotics given in the ED. No respiratory failure or sepsis. (Electronically signed by Jelena Nash MD 12/17/2016 9:35)
--- NOTE | 2016-12-17 10:04 | NUR ---
NUTRITION ASSESSMENT: S: Pt admitted with dx/o weakness, bilateral PNA, s/p left inguinal hernia, with s/p hernia repair on 12/11. PMH of esophageal ca, recurrent aspiration PNAs, Hypothryroid, pulmonary disease, chronic hypoxia, depression, GERD, hiatal hernia, hyperlipidemia, GERD, see H&P. Spoke with pt this am, states that his ht is 68", denies wt loss but not sure? O: Diet Rx: NPO Tube feeding orders/Rx: Resource 2.0 240 mls QID w/30 mls of H2O flush QID Wts: 69.7 kg Ht: 68" IBW: 60-75 kg (68 kg) BMI: 23.3 %IBW: ~100% Wts: (01/11/16) 67.3 kg Est Kcals: ~0516-0678 kcals per day Est Pro: ~70-85 g per day Est Fluids: ~70-90 g per day Est Fluids: ~per MD Meds Incl: lasix, stool softners, levothyroxine, IV mag, protonix, bowel meds, IVFs D5 NS wth KCL at 100 mls per hour = 2400 mls of fluids. Labs Incl: (12/17) glucose 110, BUN 25, Creat 0.7, Na+ 145, K+ 4.1, mag 1.6, Ca+ 7.7, total pro 5.4, albumin 1.9, BNP 381, HGB 32.8, HCT 10.9, MCV 92, MCH 31 Skin: Luiz Score 15; skin fragile waffle placed A/P: Pt tolerating enteral feeds per nsg. Pt nutrition soley enteral at this time. Enteral nutrition provides ~1920 kcals and ~80 g of protein which appears to meet estimated nutritional needs. Pt recieves 30 mls of h2o flush with feeds (qid), but he is currently on IVFs for hydration (see eMar). Rev'd meds and labs. albumin 1.9, would be nice to see Pre albumin lab. Call to MD for order (Dr. Sanchez). P: Contineu current feeds. Rec order prealbumin .
--- NOTE | 2016-12-17 10:09 | NUR ---
PATIENT UP IN CHAIR X 1 SO FAR THIS AM. REQUESTED TO BE BACK IN BED AFTER UP IN CHAIR FOR A SHORT TIME. PEG TUBE INTACT, NO SX OF INFECTION. VERY [place]. UP TO BATHROOM AND SIDE OF BED 1 PERSON SBA. SEE SHIFT ASSESSMENT FOR FURTHER DETAILS.
[2016-12-17 10:29] VITALS: BP 108/71
--- NOTE | 2016-12-17 11:11 | NUR ---
Patient with Luiz score of 15, WAFFLE mattress and WAFFLE chair pad being placed, will continue to monitor.
--- NOTE | 2016-12-17 13:55 | NUR ---
I discussed with the patient their current medications, possible side effects, and answered questions.
[2016-12-17 14:31] VITALS: BP 105/71
[2016-12-17 18:32] VITALS: BP 108/71
[2016-12-17 22:30] VITALS: BP 121/73
[2016-12-18 02:06] VITALS: BP 121/78
--- NOTE | 2016-12-18 05:48 | NUR ---
pt slept on and off through out the night, waking up often to void. SBA at bedside to use urinal, clear yellow UOP. SOB with activity, able to reposition self in bed, WAFFLE overlay in place. calls appropriately. PEG tube in place, residual checked at 0530, <5 cc return. intact, no s/s infection. incision sites CDI x3. coughing up small amounts of thick, foamy, light yellow sputum. WCTM.
[2016-12-18 06:28] VITALS: BP 125/79
--- NOTE | 2016-12-18 07:39 | Progress Note ---
Subjective General 81yo male admitted with pneumonia. Pt has hx throat cancer and resultant dysphagia/aspiration resulting in recurrent pneumonias and g-tube placement. Pt has done better since staying NPO but now is admitted with pneumonia. Admitted and placed on levaquin and feels improved. Patient feels slightly improved and not as weak. has tolerated shot stints in chair but quickly asks to go back to bed. Has had home O2 but states he does not use it. Constitutional Weakness. Denies: Fever, Chills, Sweats. Respiratory Cough. Denies: Wheezing, Pleuritic Pain, Sputum. Cardiovascular Denies: Chest Pain, Palpitations, Edema. Gastrointestinal Denies: Nausea, Vomiting, Abdominal Pain. Genitourinary Denies: Dysuria, Frequency. Physical Exam Vital Signs / I&Os Vital Signs Date Time Temp Pulse Resp B/P Pulse O2 O2 Flow FiO2 Ox Delivery Rate 12/18 0628 98.8 98 18 125/79 96 Nasal 4.0 Cannula 12/18 0206 99.0 100 16 121/78 95 Nasal 4.0 Cannula 12/17 2230 98.8 107 17 121/73 95 Nasal 4.0 Cannula 12/17 2058 4.0 12/17 2009 Nasal 4.0 Cannula 12/17 1832 98.8 98 18 108/71 94 Nasal 4.0 Cannula 12/17 1431 98.8 106 18 105/71 94 Nasal 4.0 Cannula 12/17 1029 100.0 117 18 108/71 89 Nasal 4.0 Cannula 12/17 1023 5.0 12/17 0745 4.0 I&O 12/17 0800 12/17 1600 12/18 0000 Intake Total 570 1634 Output Total 780 425 425 Balance -996 763 5680 General Appearance Alert, Oriented X3, Cooperative, No acute distress Lungs Bilateral rhonchi, but not as loud. Cardiovascular Regular rate and rhythm Abdomen Normal bowel sounds, Soft, No tenderness Extremities No edema Skin No Rashes, No Breakdown, No Significant Lesions LAB Results Laboratory Tests 12/17 12/18 12/18 1555 0530 0530 Chemistry Plasma Sodium (136 - 145 mmol/L) 141 Plasma Potassium (3.5 - 5.1 mmol/L) 3.8 Plasma Chloride (98 - 107 mmol/L) 103 CO2 (Enzymatic) (21 - 32 mmol/L) 33 BUN (7 - 18 mg/dL) 20 Creatinine (0.6 - 1.3 mg/dL) 0.7 Est GFR ( Amer) (mL/min) >60 Est GFR (Non-Af Amer) (mL/min) >60 Glucose (70 - 110 mg/dL) 122 Plasma Calcium (8.5 - 10.1 mg/dL) 8.1 Plasma Magnesium (1.8 - 2.4 mg/dL) 1.9 Total Bilirubin (0.0 - 1.0 mg/dL) 0.4 AST (15 - 37 U/L) 27 ALT (12 - 78 U/L) 16 Alkaline Phosphatase (46 - 116 U/L) 96 B-Natriuretic Peptide (5 - 100 pg/ml) 304 293 Total Protein (6.4 - 8.2 g/dL) 6.1 Albumin (3.3 - 5.0 g/dL) 1.7 Hematology WBC (4.5 - 11.5 K/uL) 10.4 RBC (4.50 - 5.90 M/uL) 3.70 Hgb (13.5 - 17.5 gm/dL) 11.1 Hct (41.0 - 53.0 %) 34.2 MCV (80 - 100 fL) 92 MCH (26 - 34 pg) 30 RDW (11.6 - 14.8 %) 14.8 Neut % (Auto) (50 - 75 %) 85.8 Lymph % (Auto) (25 - 40 %) 6.5 [place] % (Auto) (3 - 14 %) 6.9 Eos % (Auto) (0 - 4 %) 0.2 Baso % (Auto) (0 - 2 %) 0.6 Plt Count, EDTA (150 - 400 K/uL) 219 PUBS MCHC (31 - 37 g/dL) 33 Assessment and Plan Problem List 1. Pneumonia Plan Continue antibiotics IV, O2 as needed and nebulized treatments. 2. COPD exacerbation Plan Continue support. Will also order PT and ambulation. D/c IV 3. Dysphagia Plan Pt remains on G-tube feeding.
--- NOTE | 2016-12-18 08:14 | DIAGNOSTIC IMAGING REPORT ---
PROCEDURE: XR CHEST 2 VIEW INDICATION: pneumonia, follow-up TECHNIQUE: PA and lateral view. COMPARISON: Chest x-ray 12/16/2016 FINDINGS: Cardiomegaly with improved pulmonary vascular congestion and no change in the right basilar infiltrate and a moderate right pleural effusion. Progression of diffuse left lung infiltrate with new small left pleural effusion. Bony thorax is unremarkable. IMPRESSION: 1. Progression of diffuse left lung infiltrate with new small left pleural effusion 2. Stable right basilar infiltrate 3. Cardiomegaly with improved pulmonary vascular congestion and stable moderate right pleural effusion
[2016-12-18 10:40] VITALS: BP 103/66
--- NOTE | 2016-12-18 13:32 | NUR ---
NUTRITION FOLLOW UP NOTE: Pt continue to tolerate enteral feeds per nsg report. Pt IVFs d/c'd this am. This RD reviewed fluids needs. Free water from formula = ~665 mls 30 mls flush with feedings ~120 mls Rec add 180 mls qid to provide ~ 720 mls Flush tube with 30 mls before and after feeding administration to provide ~1625 mls of free water. Total volume with formula and free water = 1920 mls per day. REv' dmeds and labs. Good to see BUN trending iza, K+, Na+ and mag appear wnl.
[2016-12-18 14:25] VITALS: BP 119/71
[2016-12-18 18:33] VITALS: BP 102/68
--- NOTE | 2016-12-18 20:50 | NUR ---
PT LUNG SOUNDS COARSE THROUGHOUT ALL ROBERTS. REPOSITIONED PATIENT TO SITTING UPRIGHT IN BED, ENCOURAGED TO C&DB. PT ABLE TO COUGH UP MODERATE AMOUNT OF THICK WHITE/YELLOW SPUTUM. PT UNABLE TO VOID INDEPENDENTLY, BLADDER SCANNED 623ML. NOTIFIED, ORDERS TO PLACE [place] NOW. WCTM.
[2016-12-18 23:18] VITALS: BP 110/63
[2016-12-19 02:38] VITALS: BP 122/79
[2016-12-19 07:14] VITALS: BP 109/73
--- NOTE | 2016-12-19 07:48 | Progress Note ---
Subjective General 81yo male admitted with pneumonia. Pt has hx throat cancer and resultant dysphagia/aspiration resulting in recurrent pneumonias and g-tube placement. Pt has done better since staying NPO but now is admitted with pneumonia. Admitted and placed on levaquin and feels improved. CXR showed: IMPRESSION: 1. Progression of diffuse left lung infiltrate with new small left pleural effusion 2. Stable right basilar infiltrate 3. Cardiomegaly with improved pulmonary vascular congestion and stable moderate right pleural effusion Nursing and patient report increased cough with phlegm. Antibiotic switched to zosyn due to lack of improvement in pt with aspiration. Physical Exam Vital Signs / I&Os Vital Signs Date Time Temp Pulse Resp B/P Pulse O2 O2 Flow FiO2 Ox Delivery Rate 12/19 0714 98.6 116 19 109/73 99 Nasal 4.0 Cannula 12/19 0238 96.4 116 18 122/79 91 Nasal 3.0 Cannula 12/18 2318 99.3 105 18 110/63 95 Nasal 3.0 Cannula 12/18 2126 3.0 12/18 2100 Nasal 4.0 Cannula 12/18 1833 99.1 105 18 102/68 92 Nasal 4.0 Cannula 12/18 1700 Nasal 4.0 Cannula 12/18 1425 98.1 112 20 119/71 94 Nasal 4.0 Cannula 12/18 1040 98.4 101 18 103/66 95 Nasal 4.0 Cannula 12/18 1000 4.0 12/18 0850 4.0 I&O 12/18 0800 02/ 1600 / 0000 Intake Total 941 1040 780 Output Total 425 300 600 Balance 516 740 180 General Appearance Alert, Oriented X3, Cooperative, No acute distress Lungs scattered rhonchi. Cardiovascular Regular rate and rhythm Abdomen Normal bowel sounds, Soft, No tenderness Extremities No edema Skin No Rashes, No Breakdown, No Significant Lesions LAB Results Laboratory Tests 12/19 02 0540 0540 Chemistry Plasma Sodium (136 - 145 mmol/L) 138 Plasma Potassium (3.5 - 5.1 mmol/L) 3.9 Plasma Chloride (98 - 107 mmol/L) 101 CO2 (Enzymatic) (21 - 32 mmol/L) 34 BUN (7 - 18 mg/dL) 23 Creatinine (0.6 - 1.3 mg/dL) 0.8 Est GFR ( Amer) (mL/min) >60 Est GFR (Non-Af Amer) (mL/min) >60 Glucose (70 - 110 mg/dL) 110 Plasma Calcium (8.5 - 10.1 mg/dL) 8.2 Total Bilirubin (0.0 - 1.0 mg/dL) 0.5 AST (15 - 37 U/L) 27 ALT (12 - 78 U/L) 19 Alkaline Phosphatase (46 - 116 U/L) 90 B-Natriuretic Peptide (5 - 100 pg/ml) 196 Total Protein (6.4 - 8.2 g/dL) 5.8 Albumin (3.3 - 5.0 g/dL) 1.6 Hematology WBC (4.5 - 11.5 K/uL) 12.1 RBC (4.50 - 5.90 M/uL) 3.57 Hgb (13.5 - 17.5 gm/dL) 10.7 Hct (41.0 - 53.0 %) 32.4 MCV (80 - 100 fL) 91 MCH (26 - 34 pg) 30 RDW (11.6 - 14.8 %) 15.0 Neut % (Auto) (50 - 75 %) 88.5 Lymph % (Auto) (25 - 40 %) 5.1 [place] % (Auto) (3 - 14 %) 6.2 Eos % (Auto) (0 - 4 %) 0.2 Baso % (Auto) (0 - 2 %) 0 Plt Count, EDTA (150 - 400 K/uL) 228 PUBS MCHC (31 - 37 g/dL) 33 Assessment and Plan Problem List 1. Pneumonia Plan Anticipate improvemnent on zosyn. Continue O2. PT ordered. 2. History of throat cancer Plan Hx aspiration noted. 3. COPD exacerbation Plan On O2 and bronchodilators.
--- NOTE | 2016-12-19 09:28 | NUR ---
pt ambulated from BR to bed. per RN report he had refused to wear O2 into BR. Once seated on the bed pt's SpO2 read 67%. pt stated he felt like he was getting enought air. pt's NC was placed on 4L O2. pt's SpO2 increased to 90% after several minutes. RN was present to monitor SpO2. pt's HR continues to be in the 120's. He completed sit to supine SBA with V/C for position. pt left with call quigley in place and lights off. RN notified to ambulated pt 2-3x/day. pt will continue to be followed. pt may need increased amount of care secondary to O2 levels that hinder mobility.
--- NOTE | 2016-12-19 10:30 | NUR ---
NUTRITION FOLLOW UP NOTE: Pt continues on Resource 2.0 240 ml boluses QID = 1920 kcals and 80 g protein per 24 hour cycle = 27.4 kcals per kg and 1.14 g protein per kg. Noted prealbumin lab 6 (nl= 9-32), however pt currently has an infection and may have some inflamation/metabolic stress and also cancer may affect this lab as well. Rev'd lytes. Rec continue current enteral feedings and H20 bolus flushes, will follow up and monitor nutrition indices, labs, wts, etc.
[2016-12-19 10:31] VITALS: BP 96/62
--- NOTE | 2016-12-19 10:41 | Progress Note ---
Subjective General BNP elevated and UO low will increase on tube feeds and start on torsemide and re check labs in am
--- NOTE | 2016-12-19 10:41 | Progress Note ---
Subjective General BNP elevated and UO low will increase on tube feeds and start on torsemide and re check labs in am
--- NOTE | 2016-12-19 10:42 | NUR ---
NOTIFIED DR. GALDAMEZ OF LOW URINE OUT PUT AND THAT PATIENT DESATTED ON RA TO 60'S, HE AMBULATED TO BATHROOM AND REFUSED 02. PER MD TRY TO INCREASE FREE H20 FLUSHES TO 180CC Q 2-3 HOURS IF POSSIBLE AND PATIENT TOLERATES WITH NO EXCESS RESIDUAL. WCTM
--- NOTE | 2016-12-19 10:42 | NUR ---
NUTRITION ADDENDUM: Per nsg MD would like to increase water bolus flushes to every 2-3 hours (180 mls) instead of every 4 hours 2/[address] concerned [address] urine output[address] RD to follow up prn/protocol (see RD f/u note frome today /).
[2016-12-19 14:35] VITALS: BP 96/63
--- NOTE | 2016-12-19 14:37 | NUR ---
RESIDUAL CHECKED, NONE, ADMINISTERED EXTRA 180 CC OF WATER FOR SHIFT PER NEW ORDERS, URINE OUTPUT STILL LOW. CALLED DR. GALDAMEZ TO NOTIFY. [place]
--- NOTE | 2016-12-19 18:22 | NUR ---
PATIENT'S VITALS ARE STABLE. PATIENT'S CONDITION REMAINS THE SAME.
[2016-12-19 18:50] VITALS: BP 110/72
[2016-12-19 23:04] VITALS: BP 118/64
[2016-12-20 02:38] VITALS: BP 109/65
[2016-12-20 07:04] VITALS: BP 111/57
--- NOTE | 2016-12-20 07:58 | NUR ---
pt slept throughout the night without c/o nausea, pain, or SOB. Easily arousable, pleasant and cooperative. PEG intact, flushes well. Shayna H20 fluid boluses well. Better U.O. this shift. Will cont to monitor.
--- NOTE | 2016-12-20 08:15 | DIAGNOSTIC IMAGING REPORT ---
PROCEDURE: XR CHEST 1 VIEW INDICATION: pneumonia follow-up TECHNIQUE: Portable AP view 05:22 a.m. COMPARISON: Chest x-ray 12/18/2016 FINDINGS: Mildly improved large left basilar infiltrate. No change in the right basilar infiltrate with moderate right and small left pleural effusions. Stable cardiomegaly and mild pulmonary vascular congestion. Thorax is normal. IMPRESSION: 1. Mildly improved large left basilar infiltrate 2. Stable small right basilar infiltrate and bilateral pleural effusions 3. Stable cardiomegaly with mild pulmonary vascular congestion
[2016-12-20 10:13] VITALS: BP 96/55
--- NOTE | 2016-12-20 12:08 | Progress Note ---
Subjective General 81yo male admitted with pneumonia. Pt has hx throat cancer and resultant dysphagia/aspiration resulting in recurrent pneumonias and g-tube placement. Pt has done better since staying NPO but now is admitted with pneumonia. Admitted and placed on levaquin and feels improved. Constitutional Denies: Fever, Chills, Sweats. Respiratory Cough. Denies: Wheezing. Cardiovascular Denies: Chest Pain, Palpitations, Edema. Gastrointestinal Denies: Nausea, Vomiting, Abdominal Pain, Diarrhea, Constipation. Genitourinary Denies: Dysuria. Skin Denies: Rash. Physical Exam Vital Signs / I&Os Vital Signs Date Time Temp Pulse Resp B/P Pulse O2 O2 Flow FiO2 Ox Delivery Rate 12/20 1013 98.1 103 20 96/55 95 Nasal 4.0 Cannula 12/20 0743 4.0 12/20 0704 98.2 96 21 111/57 90 Nasal 4.0 Cannula 12/20 0238 98.2 97 16 109/65 98 Nasal 5.0 Cannula 12/20 0030 Nasal 5.0 Cannula 12/19 2304 98.1 100 17 118/64 91 Nasal 5.0 Cannula 12/19 2021 4.0 12/19 2010 3.0 12/19 1850 97.9 103 18 110/72 95 Nasal 3.0 Cannula 12/19 1435 98.8 110 18 96/63 94 Nasal 3.0 Cannula I&O 12/19 0800 / 1600 12/20 0000 Intake Total 310 960 869 Output Total 250 425 450 Balance 60 535 419 General Appearance Alert, Oriented X3, Cooperative Lungs Bilateral rhonchi Cardiovascular Regular rate and rhythm Abdomen Normal bowel sounds, Soft, No tenderness, Gtube in place. Extremities No edema Skin No Rashes, No Breakdown, No Significant Lesions LAB Results Laboratory Tests 12/20 12/20 0515 0515 Chemistry Plasma Sodium (136 - 145 mmol/L) 139 Plasma Potassium (3.5 - 5.1 mmol/L) 3.4 Plasma Chloride (98 - 107 mmol/L) 101 CO2 (Enzymatic) (21 - 32 mmol/L) 34 BUN (7 - 18 mg/dL) 19 Creatinine (0.6 - 1.3 mg/dL) 0.7 Est GFR ( Amer) (mL/min) >60 Est GFR (Non-Af Amer) (mL/min) >60 Glucose (70 - 110 mg/dL) 95 Plasma Calcium (8.5 - 10.1 mg/dL) 7.9 Total Bilirubin (0.0 - 1.0 mg/dL) 0.4 AST (15 - 37 U/L) 29 ALT (12 - 78 U/L) 20 Alkaline Phosphatase (46 - 116 U/L) 85 B-Natriuretic Peptide (5 - 100 pg/ml) 192 Total Protein (6.4 - 8.2 g/dL) 5.7 Albumin (3.3 - 5.0 g/dL) 1.6 Hematology WBC (4.5 - 11.5 K/uL) 7.9 RBC (4.50 - 5.90 M/uL) 3.46 Hgb (13.5 - 17.5 gm/dL) 10.4 Hct (41.0 - 53.0 %) 31.6 MCV (80 - 100 fL) 91 MCH (26 - 34 pg) 30 RDW (11.6 - 14.8 %) 14.9 Neut % (Auto) (50 - 75 %) 81.3 Lymph % (Auto) (25 - 40 %) 8.7 [place] % (Auto) (3 - 14 %) 6.9 Eos % (Auto) (0 - 4 %) 2.0 Baso % (Auto) (0 - 2 %) 1.1 Plt Count, EDTA (150 - 400 K/uL) 224 PUBS MCHC (31 - 37 g/dL) 33 Imaging CXR IMPRESSION: 1. Mildly improved large left basilar infiltrate 2. Stable small right basilar infiltrate and bilateral pleural effusions 3. Stable cardiomegaly with mild pulmonary vascular congestion Assessment and Plan Problem List 1. Pneumonia Plan Continue antibiotics. CXR shows slight improvement. 2. COPD exacerbation Plan Stable on oxygen and nebulized rx. 3. History of throat cancer Plan stab le 4. Recurrent aspiration pneumonia Plan Gtube feeding in progress.
[2016-12-20 14:37] VITALS: BP 101/59
[2016-12-20 18:58] VITALS: BP 102/59
--- NOTE | 2016-12-20 22:00 | NUR ---
PATIENT WAS REPOSITIONED UP IN BED AND WAS SAT UPRIGHT FOR PEG BOLUSES WHICH HE HAS TOLERATED WELL. URINARY CATHETER DRAINING GOOD AMOUNTS OF URINE. HAS BEEN BRINGING UP GOOD AMOUNTS OF PHLEGM. CONTINUES ON IV ANTIBIOTICS.
[2016-12-20 23:00] VITALS: BP 117/69
[2016-12-21 02:00] VITALS: BP 115/65
[2016-12-21 07:03] VITALS: BP 121/77
--- NOTE | 2016-12-21 08:13 | Progress Note ---
Subjective General 81yo male admitted with pneumonia. Pt has hx throat cancer and resultant dysphagia/aspiration resulting in recurrent pneumonias and g-tube placement. Pt has done better since staying NPO but now is admitted with pneumonia. Admitted and placed on levaquin and feels improved. Feeling improved. Still coughing some. Wears oxygen at home. Denies nausea, vomiting, fever, chills. Still feels weak. Physical Exam Vital Signs / I&Os Vital Signs Date Time Temp Pulse Resp B/P Pulse O2 O2 Flow FiO2 Ox Delivery Rate 12/21 0703 98.4 95 21 121/77 94 Nasal 4.0 Cannula 12/21 0200 98.8 101 20 115/65 95 Nasal 4.0 Cannula 12/20 2300 Nasal 4.0 Cannula 12/20 2300 98.2 98 20 117/69 97 Nasal 4.0 Cannula 12/20 1934 4.0 12/20 1858 98.2 101 20 102/59 92 Nasal 4.0 Cannula / 1437 98.1 100 20 101/59 98 Nasal 4.0 Cannula 12/20 1013 98.1 103 20 96/55 95 Nasal 4.0 Cannula 12/20 0830 Nasal 4.0 Cannula I&O 12/20 0800 02/04 1600 02/05 0000 Intake Total 800 420 930 Output Total 550 275 625 Balance 250 145 305 General Appearance Alert, Oriented X3, Cooperative, No acute distress Lungs Bibasilar crackles. Cardiovascular Regular rate and rhythm Abdomen Normal bowel sounds, Soft, No tenderness Extremities No edema Skin No Rashes, No Breakdown, No Significant Lesions LAB Results Laboratory Tests 12/21 12/21 0525 0525 Chemistry Plasma Sodium (136 - 145 mmol/L) 140 Plasma Potassium (3.5 - 5.1 mmol/L) 3.4 Plasma Chloride (98 - 107 mmol/L) 101 CO2 (Enzymatic) (21 - 32 mmol/L) 34 BUN (7 - 18 mg/dL) 18 Creatinine (0.6 - 1.3 mg/dL) 0.7 Est GFR ( Amer) (mL/min) >60 Est GFR (Non-Af Amer) (mL/min) >60 Glucose (70 - 110 mg/dL) 94 Plasma Calcium (8.5 - 10.1 mg/dL) 8.1 Plasma Magnesium (1.8 - 2.4 mg/dL) 2.0 Total Bilirubin (0.0 - 1.0 mg/dL) 0.4 AST (15 - 37 U/L) 36 ALT (12 - 78 U/L) 26 Alkaline Phosphatase (46 - 116 U/L) 89 B-Natriuretic Peptide (5 - 100 pg/ml) 176 Total Protein (6.4 - 8.2 g/dL) 5.9 Albumin (3.3 - 5.0 g/dL) 1.7 Hematology WBC (4.5 - 11.5 K/uL) 7.1 RBC (4.50 - 5.90 M/uL) 3.55 Hgb (13.5 - 17.5 gm/dL) 10.6 Hct (41.0 - 53.0 %) 32.2 MCV (80 - 100 fL) 91 MCH (26 - 34 pg) 30 RDW (11.6 - 14.8 %) 14.9 Neut % (Auto) (50 - 75 %) 78.4 Lymph % (Auto) (25 - 40 %) 9.8 [place] % (Auto) (3 - 14 %) 6.7 Eos % (Auto) (0 - 4 %) 4.1 Baso % (Auto) (0 - 2 %) 1.0 Plt Count, EDTA (150 - 400 K/uL) 232 PUBS MCHC (31 - 37 g/dL) 33 Assessment and Plan Problem List 1. Pneumonia Plan Continue antibiotics. 2. COPD exacerbation Plan Improving slowly with treatment of pneumonia. 3. Hypokalemia Plan Will supplement.
[2016-12-21 10:40] VITALS: BP 103/59
[2016-12-21 15:25] VITALS: BP 120/78
--- NOTE | 2016-12-21 17:56 | NUR ---
PT OOB 3 TIMES FOR EACH PEG TUBE BOLUS FEEDINGS. TOLERATES WELL. NO RESIDUAL BEFORE FEEDINGS. NO C/O PAIN OR DISCOMFORT. LS IMPROVED FROM YESTERDAY. FINE RALES MID TO LOWER LOBES, NOT THROUGHOUT. SCANT AMOUNT OF SPUTUM TODAY. WCTM.
[2016-12-21 18:13] VITALS: BP 119/73
[2016-12-21 23:00] VITALS: BP 113/75
[2016-12-22 02:05] VITALS: BP 128/90
[2016-12-22 06:17] VITALS: BP 115/72
--- NOTE | 2016-12-22 07:24 | DIAGNOSTIC IMAGING REPORT ---
PROCEDURE: XR CHEST 1 VIEW INDICATION: pneumonia, follow-up TECHNIQUE: Portable AP view 05:34 a.m. COMPARISON: Chest x-ray 12/20/2016 FINDINGS: Mildly improved large left basilar and smaller right basilar infiltrate. No change in the moderate right pleural effusion. Stable mild cardiomegaly with pulmonary vascular congestion. Thorax is normal. IMPRESSION: 1. Mildly improved bilateral infiltrates 2. Stable cardiomegaly, pulmonary vascular congestion and moderate right pleural effusion.
[2016-12-22 10:03] VITALS: BP 100/66
--- NOTE | 2016-12-22 11:59 | NUR ---
no PT d/t high census. Will follow up 12-23-16
--- NOTE | 2016-12-22 12:24 | NUR ---
MEGHA REMOVED @ 0830 AND HAS URINATED SINCE REMOVAL. AMBULATED AROUND THE HALLWAY X'S 1 ON O2 @ 4L AND DESATED TO 84% PT STATED, "NOT FEELING LIGHTHEADED OR SOB." ONCE BACK TO ROOM AND RESTING, SATURATION INCREASED TO 93-94% DR JAMES WILL BE BACK TO ASSESS PT AROUND 1300 TO IN HOME. DAUGHTER AT THE BEDSIDE.
[2016-12-22] MEDS ORDERED: CEPHALEXIN250 MG/5 M PTUBE (13:53)
[2016-12-22] MEDS ORDERED: COMBIVENT RESPIMAT PO (13:55)
--- NOTE | 2016-12-22 13:59 | Provider's Discharge Care Plan ---
Problem, Goal, Plan Problem List 1. Pneumonia Goals: Improve disease control Instructions: Take meds as directed, Use oxygen at 4 liters/min 2. COPD exacerbation Goals: Improve disease control Instructions: Take meds as directed 3. Recurrent aspiration pneumonia Goals: Improve disease control Instructions: Take meds as directed 4. Dysphagia Goals: Improved health/wellness Instructions: Continue tube feedings. 5. Hypokalemia Goals: Improved health/wellness Instructions: Take meds as directed
--- NOTE | 2016-12-22 14:45 | DISCHARGE SUMMARY ---
ADMIT DATE: 12/16/2016 DISCHARGE DATE: 12/22/2016 ADMITTING DIAGNOSES: 1. Bibasilar pneumonia 2. Congestive heart failure by chest x-ray 3. Chronic gastrostomy tube for dysphagia, with history of throat cancer 4. History of thyroid disease 5. History of hypertension 6. History of dementia DISCHARGE DIAGNOSES: 1. Bibasilar pneumonia, probably secondary to aspiration 2. New congestive heart failure by chest x-ray, resolved on later x-ray without specific treatment 3. Chronic gastrostomy tube for dysphagia and recurrent aspirations 4. Hypothyroidism 5. History of hypertension 6. History of dementia, with no evidence of dementia at this visit BRIEF HISTORY: The patient presented to [facility] with increasing weakness over 2 days and occasional cough, without being short of breath. He has home oxygen, but had not been using it. On evaluation in the emergency, bibasilar pneumonia was noted and the patient was found to be hypoxic. HOSPITAL COURSE: The patient was admitted and treated with intravenous antibiotics, nebulized treatments, and oxygen supplementation. He was initially managed on Levaquin, with some clinical improvement, but x-ray failed to improve. He was therefore switched to ertapenem, with more rapid improvement. Chest x-ray documented improvement on the day of discharge. The patient was also, by then, able to ambulate with a walker, tolerated gastric tube feeding, and was able to void without difficulty. Earlier in the hospital, the patient had some difficulty with fluid retention of the bladder. Soares catheter was placed for several days; however, the patient tolerated voiding well after cessation of the tube. During the hospitalization, the patient was treated for low potassium and otherwise maintained on his regular medications. DISCHARGE INSTRUCTIONS/MEDICATIONS: Disposition: Home to assisted living with home oxygen, visiting nurses, and home physical therapy for strengthening. Visiting nurses are to monitor medication use and compliance. Monitor tolerance of oxygen therapy. Physical therapy is for strengthening and safety with ambulation and transfers, as this has left him somewhat weakened. Discharge medications: Cephalexin 250 mg per 5 mL, 10 mL per tube t.i.d. Ipratropium (Combivent) 1 puff p.o. t.i.d. Levothyroxine 75 mcg per tube daily. Vitamin D 2000 units per tube daily. B complex 1000 units per tube daily. Aspirin 81 mg per tube daily. Tramadol 50 mg per tube b.i.d. p.r.n. pain. Doxazosin 1 mg per tube daily. Acetaminophen 650 mg per tube q.4 hours p.r.n. pain. Magnesium hydroxide. Milk of magnesia 400 mg per 5 mL per tube daily p.r.n. constipation. Promethazine 25 mg per tube q.6 hours p.r.n. nausea or vomiting. Hydrocodone 5/325, one tab per tube crushed q.4 hours p.r.n. pain. Special instructions: Home oxygen to be used continuously at 4 L per nasal prongs per minute. We will contact his oxygen supply company, [employer], to provide portable oxygen as well as home oxygen, as he will be using it consistently now. Home visiting nurses and physical therapy also recommended and ordered. Follow up with primary caregiver, Arabella Springer PA-C, in 2 weeks with chest x-ray at that time.
[2016-12-22 14:54] VITALS: BP 111/75
[2016-12-22 15:19] VITALS: BP 111/75
--- NOTE | 2016-12-22 16:28 | NUR ---
WENT OVER DC INSTRUCTIONS WITH DAUGHTER, GAVE PRESCRIPTIONS AND EDUCATION. PT'S DAUGHTER IS POA AND GUARDIAN AND SIGNED OFF ON DC INSTRUCTIONS AND STATED UNDERSTANDING. CALLED [facility], WHERE PT LIVES, AND REPORTED OFF TO [facility]. PT WILL BE GOING HOME ON APRIA O2 NC PER 4L AND WILL CONTINUE THAT AT HOME PER MD INSTRUCTIONS. ESCORTED OUT VIA WC TO PRIVATE CAR BACK TO [place].
== END 2016-12-22 16:30 | disposition home health service (06) | DRG 190 ==
LOC: ED SRH 09:50 → TRANS SRH 12:28 → ACUTE2 SRH 15:20
PROVIDERS: ADMIT Emergency Medicine
DX: J44.0 Chronic obstructive pulmonary disease with (acute) lower respiratory infection (principal); J69.0 Pneumonitis due to inhalation of food and vomit; R09.02 Hypoxemia; J44.1 Chronic obstructive pulmonary disease with (acute) exacerbation; I11.0 Hypertensive heart disease with heart failure; I50.9 Heart failure, unspecified; E83.42 Hypomagnesemia; R13.10 Dysphagia, unspecified; Z93.1 Gastrostomy status; Z85.819 Personal history of malignant neoplasm of unspecified site of lip, oral cavity, and pharynx

== ENCOUNTER 2017-01-07 09:02 | Outpatient (CLI) | payer OTHER ==
[~2017-01-07 09:02] MED LIST changes: +COMBIVENT RESPIMAT PO
--- NOTE | 2017-01-07 10:16 | DIAGNOSTIC IMAGING REPORT ---
PROCEDURE: XR CHEST 2 VIEW INDICATION: COUGH TECHNIQUE: Two views. COMPARISON: Multiple prior studies including the most recent from 12/22/2016 FINDINGS: Stable cardiomediastinal contour without significant central vascular congestion. No definite improvement in infiltrate involving the left mid and lower lung with a small amount of residual patchy opacity laterally left lung base. Decrease blunting of the left costophrenic angle. There is slight improvement in aeration at the right lung base. No residual nodule in the right [id number] lung is again identified. Compared to Chest x-ray From 12/16/2016 , there has been considerable improvement in right upper lobe aeration. Biapical pleural plaquing is stable. There is a chronic right pleural effusion, unchanged in size. The osseous structures are intact. Peg tube is visible. IMPRESSION: 1. Interval improvement in left lung infiltrate with a very small amount of residual infiltrate at the base, nearly completely resolved left pleural effusion. 2. Interval improvement in right lung aeration with small residual right lung base opacity superimposed on chronic right mid lung nodularity (granuloma) and effusion. 3. No significant central vascular congestion. 4. Discussed with Arabella Springer.
== END 2017-01-07 23:00 ==
LOC: XR SRH 09:02
DX: R05 Cough (principal); J84.10 Pulmonary fibrosis, unspecified; J90 Pleural effusion, not elsewhere classified

== ENCOUNTER 2017-01-22 12:47 | Emergency (ER) | payer OTHER ==
--- NOTE | 2017-01-22 15:38 | DIAGNOSTIC IMAGING REPORT ---
PROCEDURE: XR SHOULDER 2 OR MORE VW-RIGHT INDICATION: PAIN TECHNIQUE: Three views. COMPARISON: Right shoulder films dated 12/16/2016 FINDINGS: Calcific tendonitis with limited range of motion. No fracture or dislocation. Right pleural effusion. IMPRESSION: 1. Calcific tendonitis.
--- NOTE | 2017-01-22 15:42 | ED CLINICAL REPORT ---
Clinical Report - Physicians/Mid Levels [facility] [address] [place] [address] 01/22/2017 12:49 Patient: ALEIDA LUCAS Time Seen: 13:26. Arrived- By private vehicle. Historian- patient and daughter. Evaluation limited poor short term memory. HISTORY OF PRESENT ILLNESS Chief Complaint: R SHOULDER PAIN - NO CLEAR HISTORY OF TRAUMA BUT THERE HAS BEEN PAIN. The injury happened FOR THE LAST SEVERAL WEEKS. Occurred at work. ( No known fall.). Patient is experiencing mild pain. No other injury. REVIEW OF SYSTEMS No swelling, tingling, numbness, weakness or skin laceration. PAST HISTORY PAST HISTORY Problems: GERD. Dementia. Tendonitis. Hypotension. Hypovolemia. Pneumonia. Colon polyps . Hiatal Hernia. Insomnia . Epistaxis. Hypertension. Tongue carcinoma. Thyroid Disease. Home 02 Additional Surgeries: Hammer toe. Skin ca. PHYSICAL EXAM Vital Signs: 01/22/2017 13:17 BP: 121/78. HR: 104. RR: 18. O2 saturation: 86%. Temp: 98.7 F. Appearance: Alert. Head: Head atraumatic. Neck: C-spine non-tender. Respiratory: Decreased air movement. Chest nontender. Abdomen: Nontender. Back: No tenderness. Extremities: Right shoulder: mild tenderness located in the lateral aspect of the shoulder. Limited ROM due to pain (diminished abduction and external rotation). Neurovascular intact distally. No erythema, swelling, abrasion, ecchymosis or foreign body. No deformity. No joint effusion. Extremities otherwise negative. Neuro, Vascular and Tendons: Sensation intact. Motor intact. LABS, X-RAYS, AND EKG Rt Shoulder X-ray: (R calcific tendonitis). The X-rays were independently viewed by me. Note - Tests: (TECHNIQUE: Three views. COMPARISON: Right shoulder films dated 12/16/2016 FINDINGS: Calcific tendonitis with limited range of motion. No fracture or dislocation. Right pleural effusion. IMPRESSION: 1. Calcific tendonitis. Dictated by: ISMA CARDOSO MD D: PATY;01/22/17 1537 <Electronically signed by ISMA CARDOSO MD in OV> 01/22/17 1538). PROGRESS AND PROCEDURES Course of Care: He politely declines ibuprofen. Disposition: Discharged. Condition: stable. CLINICAL IMPRESSION Acute tendonitis in the right shoulder. INSTRUCTIONS (THIS IS CALCIFIC TENDONITIS. IF PAIN GETS WORSE IBUPROFEN 200 MG THREE TIMES A DAY FOR 5 DAYS WOULD HELP. PHYSICAL THERAPY ORDER: DX ABOVE. PRESERVE ROM OTILIO LOPEZ MD). Follow-up: Follow up with your doctor in two weeks as scheduled. Understanding of the discharge instructions verbalized by family. (Electronically signed by Otilio Lopez MD 01/24/2017 13:29)
--- NOTE | 2017-01-22 15:42 | ED NURSING NOTES ---
Clinical Report - Nurses [facility] [address] [place] [address] 01/22/2017 12:49 [id number] Triage time 13:19. Acuity: LEVEL 4. Chief Complaint: RIGHT UPPER EXTREMITY PAIN. Location of symptoms- right shoulder. Alert. No acute distress. ( wears oxygen all time). SILVIA COMA SCORE: Silvia Coma Scale: 15- eyes open spontaneously (4); best verbal response- oriented x 4 (5); best motor response- obeys commands (6). --13:28 Violet Garcia R.N. 13:17 01/22/17. BP: 121/78. HR: 104. RR: 18. O2 saturation: 86% on room air. Temp: 98.7 F (oral). Pain level now: cannot qualify. --13:28 Violet Gacria R.N. Weight: 68 kg stated. Height/Length: 71 inches Per Patient. BMI: 20.9. --13:27 Violet Garcia R.N. Medications ASA Oral 81mg, daily. Doxazosin Mesylate Oral (Tablet 1 mg) 1/2 tablet, daily. Hydrocodone-Acetaminophen Oral. Levothyroxine Sodium Oral (Tablet 75 mcg) 1 tablet, daily. Milk of Magnesia Oral, as needed. Promethazine HCl Oral. TraMADol HCl Oral 50 mg, as needed. Vitamin B Complex Oral. Vitamin D3 Oral (Tablet 1000 unit). --13:22 Violet Garcia R.N. Medication/allergy information source: the patient's family. --13:28 Violet Garcia R.N. Allergies No Known Drug Allergy. --13:22 Violet Garcia R.N. History Arrived by private vehicle. Historian: patient and family. Accompanied by family. Primary physician (Daniel). This occurred (several days). ( unknown if recent injury). SOCIAL HX: Former smoker. Alcohol use. Patient is a recovering alcoholic. No drug use. FALL RISK ASSESSMENT: Fall risk assessment completed. Risk factors identified include patient impairment of mobility and cognition. Fall interventions initiated. Patient placed on stretcher. Side rails up x1. Brakes on Bed in low position. Family at bedside. FUNCTIONAL ASSESSMENT: Functional assessment performed: requires assistance with the activities of daily living; mobility impairment present- this mobility impairment is an ongoing problem; hearing impairment present- this hearing impairment is an ongoing problem; cognitive impairment present- this cognitive impairment is an ongoing problem. LEARNING NEEDS ASSESSMENT: A learning needs assessment was performed. Factors affecting the patient's ability to learn include cognitive limitations. --13:28 Violet Garcia R.N. PROBLEMS: Cancer. Diabetes Mellitus. Cellulitis. Esophageal cancer. Cataracts. Neck Pain. Vomiting. GERD. Dementia. Tendonitis. Tetanus Status. Hypotension. Hypovolemia. Pneumonia. Colon polyps . Hiatal Hernia. Insomnia . Epistaxis. Hypertension. Immunizations. Tongue carcinoma. Thyroid Disease. --13:24 Violet Garcia R.N. ADDITIONAL SURGERIES: Cochlear implant. Hammer toe. Percutaneous endoscopic gastrostomy. Skin ca. --13:24 Violet Garcia R.N. Assessment GENERAL / NEURO / PSYCH: Alert. Appears in no acute distress. Patient appears calm and cooperative. RESPIRATORY: Respirations not labored. SKIN: Skin is warm and dry. --13:28 Violet Garcia R.N. Interventions ID band on patient. To treatment room. --13:28 Violet Garcia R.N. PHYSICAL ASSESSMENT 13:31 01/22/17. Ambulatory to room. Patient gowned. GENERAL / NEURO / PSYCH: Alert. Appears in no acute distress. SKIN: Skin is warm and dry. --13:31 Violet Garcia R.N. NURSING PROGRESS NOTES 13:01/22/17. Patient gowned. Call light placed in reach. Side rails up x 1. Bed placed in lowest position. Brakes of bed on. --13:31 Violet Garcia R.N. 14:10 01/22/17. BP: 122/79. HR: 80. RR: 20. O2 saturation: 97% on room air. --15:56 Vishal Medina R.N. 14:40 01/22/17. BP: 108/62. HR: 78. RR: 18. O2 saturation: 97% on room air. Pain level now: 0/10. --15:57 Vishal Medina R.N. 15:10 01/22/17. BP: 115/71. HR: 81. RR: 20. O2 saturation: 96% on room air. --15:58 Vishal Medina R.N. DISPOSITION / DISCHARGE 15:53 01/22/17. Departure time: 15:53. Condition at departure: unchanged and stable. Learning barriers present. Teaching performed with the family. Discharge instructions provided and reviewed with the family. Reviewed medication(s). Treatments reviewed. Family verbalized understanding. Written instructions provided in Belarusian. The patient was discharged by the physician. He was discharged home and accompanied by family. He left the Emergency Department ambulatory, via private vehicle and (walker). Family member driving. --15:53 Vishal Medina R.N. 15:25 01/22/17. BP: 113/80. HR: 96. RR: 20. O2 saturation: 97% on room air. Temp: 98.7 F. Pain level now: 0/10. --15:53 Vishal Medina R.N. Locked/Released at 01/22/2017 16:03 by Vishal Medina R.N.
--- NOTE | 2017-01-22 15:42 | ED ORDER SUMMARY ---
..... Patient: ALEIDA LUCAS OrderSheet [facility] VisitID: [id number] [address] [place] [address] 81y, M Registration Date/Time: 01/22/2017 ORDER SHEET Weight: 68.0 kg (stated) Allergies: No Known Drug Allergy GENERAL ORDERS: Shoulder 2V or more Right Urgent (14:19 01/22/2017 Genny RAHMAN) ([facility] 14:47 TBerjacob) (16:02 Landon Bangura) MEDICATION ORDERS: IV FLUIDS: ORDER SHEET NOTES: [Electronically signed by Vishal Medina R.N. (16:03 01/22/2017)] [Electronically signed by Saurav Zavala MD (13:29 01/24/2017)] [Electronically locked/signed by Vishal Medina R.N. (16:03 01/22/2017)]
--- NOTE | 2017-01-22 15:42 | ED ORDER SUMMARY ---
..... Patient: ALEIDA LUCAS OrderSheet [facility] VisitID: [id number] [address] [place] [address] 81y, M Registration Date/Time: 01/22/2017 ORDER SHEET Weight: 68.0 kg (stated) Allergies: No Known Drug Allergy GENERAL ORDERS: Shoulder 2V or more Right Urgent (14:19 01/22/2017 Genny RAHMAN) ([facility] 14:47 TBerjacob) (16:02 Landon Bangura) MEDICATION ORDERS: IV FLUIDS: ORDER SHEET NOTES: [Electronically signed by Vishal Medina R.N. (16:03 01/22/2017)] [Electronically signed by Saurav Zavala MD (13:29 01/24/2017)] [Electronically locked/signed by Vishal Medina R.N. (16:03 01/22/2017)]
--- NOTE | 2017-01-22 15:42 | ED CLINICAL REPORT ---
Clinical Report - Physicians/Mid Levels [facility] [address] [place] [address] 01/22/2017 12:49 Patient: ALEIDA LUCAS Time Seen: 13:26. Arrived- By private vehicle. Historian- patient and daughter. Evaluation limited poor short term memory. HISTORY OF PRESENT ILLNESS Chief Complaint: R SHOULDER PAIN - NO CLEAR HISTORY OF TRAUMA BUT THERE HAS BEEN PAIN. The injury happened FOR THE LAST SEVERAL WEEKS. Occurred at work. ( No known fall.). Patient is experiencing mild pain. No other injury. REVIEW OF SYSTEMS No swelling, tingling, numbness, weakness or skin laceration. PAST HISTORY PAST HISTORY Problems: GERD. Dementia. Tendonitis. Hypotension. Hypovolemia. Pneumonia. Colon polyps . Hiatal Hernia. Insomnia . Epistaxis. Hypertension. Tongue carcinoma. Thyroid Disease. Home 02 Additional Surgeries: Hammer toe. Skin ca. PHYSICAL EXAM Vital Signs: 01/22/2017 13:17 BP: 121/78. HR: 104. RR: 18. O2 saturation: 86%. Temp: 98.7 F. Appearance: Alert. Head: Head atraumatic. Neck: C-spine non-tender. Respiratory: Decreased air movement. Chest nontender. Abdomen: Nontender. Back: No tenderness. Extremities: Right shoulder: mild tenderness located in the lateral aspect of the shoulder. Limited ROM due to pain (diminished abduction and external rotation). Neurovascular intact distally. No erythema, swelling, abrasion, ecchymosis or foreign body. No deformity. No joint effusion. Extremities otherwise negative. Neuro, Vascular and Tendons: Sensation intact. Motor intact. LABS, X-RAYS, AND EKG Rt Shoulder X-ray: (R calcific tendonitis). The X-rays were independently viewed by me. Note - Tests: (TECHNIQUE: Three views. COMPARISON: Right shoulder films dated 12/16/2016 FINDINGS: Calcific tendonitis with limited range of motion. No fracture or dislocation. Right pleural effusion. IMPRESSION: 1. Calcific tendonitis. Dictated by: ISMA CARDOSO MD D: PATY;01/22/17 1537 <Electronically signed by ISMA CARDOSO MD in OV> 01/22/17 1538). PROGRESS AND PROCEDURES Course of Care: He politely declines ibuprofen. Disposition: Discharged. Condition: stable. CLINICAL IMPRESSION Acute tendonitis in the right shoulder. INSTRUCTIONS (THIS IS CALCIFIC TENDONITIS. IF PAIN GETS WORSE IBUPROFEN 200 MG THREE TIMES A DAY FOR 5 DAYS WOULD HELP. PHYSICAL THERAPY ORDER: DX ABOVE. PRESERVE ROM OTILIO LOPEZ MD). Follow-up: Follow up with your doctor in two weeks as scheduled. Understanding of the discharge instructions verbalized by family. (Electronically signed by Otilio Lopez MD 01/24/2017 13:29)
--- NOTE | 2017-01-24 13:29 | ED MED RECONCILIATION SUMMARY ---
Patient: ALEIDA LUCAS Medication Reconciliation Report [facility] VisitID: [id number] [address] [place] [address] 81y, M Registration Date/Time: 01/22/2017 Weight: 68.0 kg Height/Length: 71 in. BMI: 20.9 ALLERGIES: No Known Drug Allergy The patient's Home Medications are listed below: THE FOLLOWING MEDICATIONS NEED TO BE RECONCILED: ASA Oral 81mg, daily Doxazosin Mesylate Oral (1 mg) 1/2 tablet, daily Hydrocodone-Acetaminophen Oral Levothyroxine Sodium Oral (75 mcg) 1 tablet, daily Milk of Magnesia Oral Promethazine HCl Oral TraMADol HCl Oral 50 mg Vitamin B Complex Oral Vitamin D3 Oral (1000 unit) The source(s) of the original Home Medication information: patient's family member The following Medications were given to the patient in the Emergency Department: None. The following Medications were prescribed to the patient: None.
--- NOTE | 2017-01-24 13:29 | ED MAR SUMMARY ---
..... Medication Administration Record [facility] [address], [place] [id number] Patient: ALEIDA LUCAS Visit ID: [id number] 81y, M Weight: 68.0 kg Height/Length: 71 in BMI: 20.9 ALLERGIES: No Known Drug Allergy
--- NOTE | 2017-01-24 13:29 | ED DISCHARGE INSTRUCTIONS ---
Patient: ALEIDA LUCAS General Instructions [facility] VisitID: [id number] [place] [address] 81y, M Registration Date/Time: 01/22/2017 Acute tendonitis in the right shoulder. INSTRUCTIONS (THIS IS CALCIFIC TENDONITIS. IF PAIN GETS WORSE IBUPROFEN 200 MG THREE TIMES A DAY FOR 5 DAYS WOULD HELP. PHYSICAL THERAPY ORDER: DX ABOVE. PRESERVE ROM SAURAV LOPEZ MD). Follow-up: Follow up with your doctor in two weeks as scheduled. Understanding of the discharge instructions verbalized by family. ADDITIONAL INFORMATION Tendonitis A tendon is the thick fibrous cord that joins muscle to bone and causes joints to move. Tendonitis is inflammation of the tendon which may be due to overuse, injury or infection. This usually involves the shoulders, forearm, wrist, hands and foot. Symptoms include local pain, swelling and tenderness to the touch. Movement of the involved joint increases the pain. Tendonitis requires about 4 to 6 weeks to heal. It is treated by preventing motion of the tendon with a splint or brace and use of anti-inflammatory medicine. Home Care: Apply an ice pack (ice cubes in a plastic bag, wrapped in a towel) over the injured area for 20 minutes every 1-2 hours the first day for pain relief. Continue this 3-4 times a day until the pain and swelling goes away. Rest the inflamed joint and protect it from movement. You may use ibuprofen (Motrin, Advil) or naproxen (Aleve, Naprosyn) to treat pain and inflammation, unless another medicine was prescribed. If you can't take these medicines, acetaminophen (Tylenol) may help with the pain, but does not treat inflammation. [NOTE : If you have chronic liver or kidney disease or ever had a stomach ulcer or GI bleeding, talk with your doctor before using these medicines.] As your symptoms improve, begin gradual motion at the involved joint. Follow Up With Your Doctor If Not Improving After The First Five Days Of Treatment. Get Prompt Medical Attention If Any Of The Following Occur: Redness over the painful area Increasing pain or swelling at the joint Fever of 100.4F (38C) or higher, or as directed by your healthcare provider You have been given the following additional information: Tendonitis (Electronically signed by Saurav Lopez MD 01/24/2017 13:29)
--- NOTE | 2017-01-24 13:29 | ED MED RECONCILIATION SUMMARY ---
Patient: ALEIDA LUCAS Medication Reconciliation Report [facility] VisitID: [id number] [address] [place] [address] 81y, M Registration Date/Time: 01/22/2017 Weight: 68.0 kg Height/Length: 71 in. BMI: 20.9 ALLERGIES: No Known Drug Allergy The patient's Home Medications are listed below: THE FOLLOWING MEDICATIONS NEED TO BE RECONCILED: ASA Oral 81mg, daily Doxazosin Mesylate Oral (1 mg) 1/2 tablet, daily Hydrocodone-Acetaminophen Oral Levothyroxine Sodium Oral (75 mcg) 1 tablet, daily Milk of Magnesia Oral Promethazine HCl Oral TraMADol HCl Oral 50 mg Vitamin B Complex Oral Vitamin D3 Oral (1000 unit) The source(s) of the original Home Medication information: patient's family member The following Medications were given to the patient in the Emergency Department: None. The following Medications were prescribed to the patient: None.
--- NOTE | 2017-01-24 13:29 | ED MAR SUMMARY ---
..... Medication Administration Record [facility] [address] [place], [place] [id number] Patient: ALEIDA LUCAS Visit ID: [id number] 81y, M Weight: 68.0 kg Height/Length: 71 in BMI: 20.9 ALLERGIES: No Known Drug Allergy
== END 2017-01-22 15:50 | disposition home or self-care (01) ==
LOC: ED SRH 12:47
DX: M75.31 Calcific tendinitis of right shoulder (principal); I10 Essential (primary) hypertension; E07.9 Disorder of thyroid, unspecified; K21.9 Gastro-esophageal reflux disease without esophagitis; Z79.82 Long term (current) use of aspirin; Z79.899 Other long term (current) drug therapy; E11.9 Type 2 diabetes mellitus without complications; Z99.81 Dependence on supplemental oxygen

== ENCOUNTER 2017-04-24 09:54 | Outpatient (CLI) | payer OTHER ==
--- NOTE | 2017-04-24 12:15 | DIAGNOSTIC IMAGING REPORT ---
PROCEDURE: US NONVASCULAR EXTREMITY-RIGHT INDICATION: RT SIDE CYST AXILLA TECHNIQUE: Booth scale and color Doppler ultrasound of the right axilla. COMPARISON: None. FINDINGS: There is a 1.7 x 1.5 x 0.9 cm subcutaneous sharply circumscribed hypoechoic complex primarily solid mass with prominent internal vascularity. No other abnormalities seen. IMPRESSION: 1. Right axillary subcutaneous complex primarily solid vascular mass. Etiology is uncertain but abnormal lymph node is a consideration. Recommend ultrasound guided biopsy 2. Results discussed with Shanna Springer
== END 2017-04-24 23:00 | disposition home or self-care (01) ==
LOC: US SRH 09:54
DX: R93.8 Abnormal findings on diagnostic imaging of other specified body structures (principal)

== ENCOUNTER 2017-05-25 07:53 | Day surgery (SDC) | payer OTHER ==
[~2017-05-25] VITALS: Ht 177.8 cm; Wt 67.2 kg
[~2017-05-25 07:53] MED LIST changes: +COMBIVENT RESPIMAT; -LEVOTHYROXINE88 MCG PO; +LEVOTHYROXINE88 MCG PTUBE; -MILK OF MA400 MG/5 M PO; +MILK OF MA400 MG/5 M PTUBE; -TGT ASPIRIN81 MG PO; +TGT ASPIRIN81 MG PTUBE; -TRAMADOL HCL50 MG PO; +TRAMADOL HCL50 MG PTUBE; -VITAMIN B COMPLE1 PO; +VITAMIN B COMPLE1 PTUBE; -VITAMIN D-31000 UNIT PO; +VITAMIN D-31000 UNIT PTUBE
--- NOTE | 2017-05-25 11:33 | Provider's Discharge Care Plan ---
Problem, Goal, Plan Problem List 1. STATUS POST EXCISIONAL BIOPSY MASS UPPER RIGHT ARM Goals: Improve disease control, Therapeutic intervention Instructions: Follow up as directed, Take meds as directed, instructions for wound care
--- NOTE | 2017-05-25 11:39 | Operative Report ---
Operative Report Date of Surgery: 05/25/17 Preoperate Diagnosis: mass upper right arm Postoperative Diagnosis: inclusion cyst upper right arm Surgeon: Norm Sofia MD Engineering Illustrator Surgeon: none Procedure Performed: Excisional biopsy of mass upper right arm Anesthesia: Total intravenous anesthesia. 1% Xylocaine with epinephrine, 0.5% Marcaine with epinephrine local Indications: 81-year-old, frail male with a mass in the medial aspect of upper right arm. FINDING: A 1 cm inclusion cyst, medial aspect upper right arm Surgical Technique: 81-year-old frail male brought to the operating room, placed in the dorsal supine position. Administered TIVA by anesthesia. His right upper extremity was abducted from the side. The lesion in question was once again identified. The axilla and the medial aspect of his right upper arm was prepped with Betadine and draped in a sterile fashion. The area surrounding the mass was infiltrated using local anesthetic. Once anesthesia had taken effect, an elliptical incision was made around the mass. This incision was carried through skin, subcutaneous tissue. The lesion was then excised using Metzenbaum scissors from the surrounding subcutaneous tissue and skin. The specimen was handed off the table and sent to pathology. The skin edges were approximated using 4-0 subdermal Polysorb interrupted suture. Steri-Strips were placed over the wound. A sterile occlusive dressing was placed over the site. Patient tolerated procedure well and was transferred to recovery room in stable condition. No intraoperative anesthetic complications. CONDITION: Stable to postoperative anesthesia recovery room COMPLICATIONS: None ESTIMATED BLOOD LOSS: None FLUIDS:: 400 cc lactated Ringer's DRAINS/PACKING: None SPECIMEN: Inclusion cyst upper right arm
[2017-05-25 13:34] VITALS: BP 106/80
== END 2017-05-25 13:28 | disposition home or self-care (01) ==
LOC: SCU SRH 07:53 → OR SRH 07:53
PROVIDERS: Specialist
PROC: 0HBBXZZ Excision of Right Upper Arm Skin, External Approach (ICD-10-PCS; principal; 2017-05-25 09:30)
DX: L72.0 Epidermal cyst (principal)
CPT/HCPCS: 29229; 29240; 50004; 60001; 84038